=== PATIENT | male | born 1960 | race Caucasian/White ===

== ENCOUNTER 2016-09-10 12:01 | Emergency (ER) | payer MEDICAID ==
[2016-09-10] MEDS ORDERED: LORazepam 2 MG/ML INJ IVP ONE (12:23)
[2016-09-10] MEDS ORDERED: NS 1,000 ML IV ONE ×2 (12:23)
[2016-09-10] MEDS ORDERED: HALOPERIDOL LACT 5 MG/ML INJ IM ONE (12:23)
--- NOTE | 2016-09-10 12:23 | EDPHY ---
H & P Time Seen by Provider: 09/10/16 12:13 HPI/ROS: CHIEF COMPLAINT: Nausea and vomiting HISTORY OF PRESENT ILLNESS: Patient started having symptoms today at 4:00 a.m.. Multiple episodes of nausea and vomiting which are severe. Associated with some mild diffuse abdominal cramping but no hematemesis or coffee-ground emesis. No headache or fever, no recent abdominal trauma. No diarrhea. REVIEW OF SYSTEMS: Eye: no change in vision ENT: no sore throat Cardiac: no chest pain or syncope Pulmonary: no cough or SOB Abdomen: HPI Musculoskeletal: no back pain Skin: no rash Neuro: no headache, chronic decreased strength in lower extremities after previous spinal cord infarct as noted below. Constitutional: no fever : no urinary symptoms A comprehensive 10 point review of systems is otherwise negative aside from elements mentioned in the history of present illness. PAST MEDICAL HISTORY: Discharge summary dated 09/18/2015 personally reviewed. Includes T10 spinal infarct, hyperlipidemia, anxiety, hypertension, coronary disease. Social history: Current tobacco smoker General Appearance: Alert and conversant, cooperative. Eyes: No scleral icterus. ENT, Mouth: Slightly dry mucous membranes. Respiratory: Normal respiratory effort, breath sounds equal, lungs are clear to auscultation. Cardiovascular: Regular rate and rhythm. Gastrointestinal: Abdomen is soft and non tender. Not distended. Neurological: Alert and oriented x3. Normally conversant. Patient has decreased strength in both lower extremities but can move his toes and has sensation to light touch which is baseline for him. Skin: Slightly diaphoretic Musculoskeletal: No peripheral edema and no joint swelling. Psychiatric: Not agitated. Moderately anxious. Emergency Department course/MDM: Labs to include CBC and chemistry, IV lorazepam, IV haloperidol and Benadryl. Patient states that when he gets these he really needs to be sedated primarily to recover from his symptoms. He states that This is better than anti emetics. 1415: Feels better, no abdominal pain nausea or vomiting now. Tolerates oral, rx for Zoifran. Smoking Status: Heavy smoker Constitutional: Initial Vital Signs Temperature (C) 36.5 C 09/10/16 12:09 Heart Rate 68 09/10/16 12:09 Respiratory Rate 22 H 09/10/16 12:09 Blood Pressure 148/86 H 09/10/16 12:09 O2 Sat (%) 99 09/10/16 12:09 O2 Delivery Mode Room Air Allergies/Adverse Reactions: No Known Allergies Allergy (Verified 09/10/16 12:07) Home Medications: Medication Instructions Recorded Gabapentin [Neurontin 400 MG (*)] 400 mg PO TID #90 cap 09/08/15 Metoprolol Tartrate [Lopressor 25 37.5 mg PO BID #60 tab 09/08/15 mg (*)] Ondansetron Odt [Zofran Odt] 4 mg PO Q4PRN #6 tab 09/10/16 Medical Decision Making - Data Points Laboratory Results: Laboratory Results 09/10/16 12:34 09/10/16 12:34 09/10/16 09/10/16 12:34 12:34 WBC 11.14 10^3/uL H 10^3/uL (3.80-9.50) RBC 5.22 10^6/uL 10^6/uL (4.40-6.38) Hgb 16.0 g/dL g/dL (13.7-17.5) Hct 48.7 % % (40.0-51.0) MCV 93.3 fL fL (81.5-99.8) MCH 30.7 pg pg (27.9-34.1) MCHC 32.9 g/dL g/dL (32.4-36.7) RDW 12.1 % % (11.5-15.2) Plt Count 373 10^3/uL 10^3/uL (150-400) MPV 9.8 fL fL (8.7-11.7) Neut % (Auto) 90.9 % H % (39.3-74.2) Lymph % (Auto) 6.5 % L % (15.0-45.0) [place] % (Auto) 1.5 % L % (4.5-13.0) Eos % (Auto) 0.0 % L % (0.6-7.6) Baso % (Auto) 0.3 % % (0.3-1.7) Nucleat RBC Rel Count 0.0 % % (0.0-0.2) Absolute Neuts (auto) 10.13 10^3/uL H 10^3/uL (1.70-6.50) Absolute Lymphs (auto) 0.72 10^3/uL L 10^3/uL (1.00-3.00) Absolute Monos (auto) 0.17 10^3/uL L 10^3/uL (0.30-0.80) Absolute Eos (auto) 0.00 10^3/uL L 10^3/uL (0.03-0.40) Absolute Basos (auto) 0.03 10^3/uL 10^3/uL (0.02-0.10) Absolute Nucleated RBC 0.00 10^3/uL 10^3/uL (0-0.01) Immature Gran % 0.8 % % (0.0-1.1) Immature Gran # 0.09 10^3/uL 10^3/uL (0.00-0.10) Sodium 143 mEq/L mEq/L (134-144) Potassium 4.1 mEq/L mEq/L (3.5-5.2) Chloride 104 mEq/L mEq/L (97-110) Carbon Dioxide 23 mEq/l mEq/l (22-31) Anion Gap 16 mEq/L mEq/L (8-16) BUN 13 mg/dL mg/dL (7-23) Creatinine 0.8 mg/dL mg/dL (0.7-1.3) Estimated GFR > 60 Glucose 159 mg/dL H mg/dL (70-100) Calcium 10.7 mg/dL H mg/dL (8.5-10.4) Phosphorus 3.4 mg/dL mg/dL (2.5-4.5) Medications Given: Discontinued Medications Diphenhydramine HCl (Benadryl Injection) 50 mg IVP EDNOW ONE Stop: 09/10/16 12:25 Last Admin: 09/10/16 12:51 Dose: 50 mg Haloperidol Lactate (Haldol Injection) 2.5 mg IM EDNOW ONE Stop: 09/10/16 12:24 Last Admin: 09/10/16 12:50 Dose: 2.5 mg Sodium Chloride (Ns) 1,000 mls @ 0 mls/hr IV ONCE ONE PRN Reason: Wide Open Stop: 09/10/16 12:24 Last Admin: 09/10/16 12:51 Dose: 1,000 mls Sodium Chloride (Ns) 1,000 mls @ 0 mls/hr IV ONCE ONE PRN Reason: Wide Open Stop: 09/10/16 12:24 Last Admin: 09/10/16 12:40 Dose: 1,000 mls Lorazepam (Ativan Injection) 2 mg IVP EDNOW ONE Stop: 09/10/16 12:24 Last Admin: 09/10/16 12:50 Dose: 2 mg Departure - Departure Disposition: Home, Routine, Self-Care Clinical Impression: Nausea & vomiting Qualifiers: Vomiting type: unspecified Vomiting Intractability: non-intractable Qualified Code(s): R11.2 - Nausea with vomiting, unspecified Condition: Good Instructions: Acute Nausea and Vomiting (ED) Referrals: NONE *PRIMARY CARE P,. [Primary Care Provider] - As per Instructions Griffin Wyatt MD [Medical Doctor] - As per Instructions Prescriptions: Ondansetron Odt [Zofran Odt] 4 mg PO Q4PRN #6 tab
[2016-09-10 12:51] LABS: % IMMATURE GRANULYOCYTES 0.8 % (0.0-1.1); ABSOLUTE IMMATURE GRANULOCYTES 0.09 10^3/uL (0.00-0.10); ADD DIFF? NO; ADD MORPH? NO; ADD SCAN? NO; ATYPICAL LYMPHOCYTE FLAG 0 (0-99); FRAGMENT RBC FLAG 0 (0-99); HEMATOCRIT 48.7 % (40.0-51.0); LEFT SHIFT FLG 10 (0-99); LIPEMIA HEMOLYSIS FLAG 80 (0-99); MEAN CELL HEMOGLOBIN 30.7 pg (27.9-34.1); MEAN CELL HEMOGLOBIN CONCENTR. 32.9 g/dL (32.4-36.7); MEAN CELL VOLUME 93.3 fL (81.5-99.8); MEAN PLATELET VOLUME 9.8 fL (8.7-11.7); PLATELET CLUMPS FLAG 10 (0-99); PLATELET COUNT 373 10^3/uL (150-400); RED BLOOD CELL COUNT 5.22 10^6/uL (4.40-6.38); RED CELL DISTRIBUTION WIDTH 12.1 % (11.5-15.2)
[2016-09-10 13:05] LABS: ANION GAP 16 mEq/L (8-16); CALCIUM 10.7 mg/dL (8.5-10.4); CARBON DIOXIDE 23 mEq/l (22-31); CHLORIDE 104 mEq/L (97-110); CREATININE 0.8 mg/dL (0.7-1.3); GLOMERULAR FILTRATION RATE > 60; GLUCOSE 159 mg/dL (70-100); POTASSIUM 4.1 mEq/L (3.5-5.2); SODIUM 143 mEq/L (134-144)
[2016-09-10 15:03] VITALS: BP 160/120; PULSE 81; RESP 20; TEMP 98.2; O2SAT 96
== END 2016-09-10 15:01 | disposition home or self-care (01) ==
DX: R11.2 Nausea with vomiting, unspecified (principal); I10 Essential (primary) hypertension; F17.200 Nicotine dependence, unspecified, uncomplicated
CPT/HCPCS: 96374; J1200; J2060

== ENCOUNTER 2016-12-06 09:09 | Emergency (ER) | payer MEDICAID ==
[2016-12-06] MEDS ORDERED: NS 1,000 ML IV ONE (09:22)
--- NOTE | 2016-12-06 09:22 | EDPHY ---
H & P Stated Complaint: generalized abd pain states has bleeding ulcers Time Seen by Provider: 12/06/16 09:22 HPI/ROS: CHIEF COMPLAINT: Abdominal pain, vomiting, hematemesis HISTORY OF PRESENT ILLNESS: The patient presents to the ED with abdominal pain , vomiting and hematemesis yesterday. The patient does have a history of cyclic vomiting syndrome. Last seen in the emergency department several months ago. The patient reports he has been using coughing using marijuana on a daily basis. Yesterday he had multiple episodes of vomiting and 1 episode of hematemesis. The patient has had no recurrent hematemesis today. He denies melena. He complains of moderate epigastric pain. The patient denies recent surgery, fever, cough, congestion or other acute complaints. REVIEW OF SYSTEMS: A comprehensive 10 point review of systems is otherwise negative aside from elements mentioned in the history of present illness. Source: Patient Exam Limitations: No limitations - Personal History Current Tetanus/Diphtheria Vaccine: Yes Tetanus Vaccine Date: 2011? 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 - Social History Smoking Status: Heavy smoker - Physical Exam Exam: General Appearance: Thin male, no acute distress Eyes: Pupils equal and round no pallor or injection ENT, Mouth: Mucous membranes moist Respiratory: There are no retractions, lungs are clear to auscultation Cardiovascular: Regular rate and rhythm Gastrointestinal: Minimal epigastric tenderness, no peritoneal sounds, normal bowel sounds Rectal: Brown stool noted Neurological: A&O, normal motor function, normal sensory exam, normal cranial nerves Skin: Warm and dry, no rashes Musculoskeletal: Neck is supple nontender Extremities: symmetrical, full range of motion Constitutional: Initial Vital Signs Temperature (C) 36.8 C 12/06/16 09:16 Heart Rate 105 H 12/06/16 09:16 Respiratory Rate 19 12/06/16 09:16 Blood Pressure 130/83 H 12/06/16 09:16 O2 Sat (%) 97 12/06/16 09:16 O2 Delivery Mode Room Air Allergies/Adverse Reactions: No Known Allergies Allergy (Verified 12/06/16 09:14) Home Medications: Medication Instructions Recorded Gabapentin [Neurontin 400 MG (*)] 400 mg PO TID #90 cap 09/08/15 Metoprolol Tartrate [Lopressor 25 37.5 mg PO BID #60 tab 09/08/15 mg (*)] Ondansetron Odt [Zofran Odt] 4 mg PO Q4PRN PRN #20 tab 12/06/16 Ranitidine HCl 12/06/16 Medical Decision Making - Diagnostics Imaging Results: Imaging Impressions Abdomen CT 12/06/16 10:17 Impression: 1. Mild thickening of the gastric antrum. Consider mild gastritis. 2. No CT evidence of appendicitis, abscess or bowel obstruction. 3. Marked degenerative disk disease at L5-S1 with minimal subluxation and spondylolysis. 4. Stable subcentimeter adrenal adenoma on the right. 5. Moderate constipation. Findings discussed with Michael Mixon at 11:42 hour, 12/06/2016. ED Course/Re-evaluation: I reviewed the patient's past medical records. The patient had an IV established. He received 50 mg of IV Benadryl and 1 mg of IV Ativan The patient did have evidence of leukocytosis likely secondary to vomiting. The patient was taken for CT scan of the abdomen pelvis which demonstrates only mild gastritis without evidence of perforation or obstruction. There is no evidence of an acute surgical condition in the abdomen. The patient is noted to be heme-negative from below. The remainder of the patient's laboratory studies are normal. The patient's vomiting improve while he was in the emergency department. At this point time it is certainly possible he had a small Saima-Goodwin tear yesterday. In the absence of any ongoing hematemesis or melena and stable vital signs and CBC I do feel that he can be discharged home. The patient will be advised to return to the ED for markedly worsening symptoms or other concerns. Differential Diagnosis: Differential diagnosis considered includes upper GI bleed, lower GI bleed, pancreatitis, cyclic vomiting syndrome, dehydration, metabolic abnormality, renal failure - Data Points Laboratory Results: Laboratory Results 12/06/16 09:30 12/06/16 09:30 12/06/16 12/06/16 12/06/16 09:30 09:30 09:30 WBC 20.91 10^3/uL H 10^3/uL (3.80-9.50) RBC 5.53 10^6/uL 10^6/uL (4.40-6.38) Hgb 16.9 g/dL g/dL (13.7-17.5) Hct 48.7 % % (40.0-51.0) MCV 88.1 fL fL (81.5-99.8) MCH 30.6 pg pg (27.9-34.1) MCHC 34.7 g/dL g/dL (32.4-36.7) RDW 13.1 % % (11.5-15.2) Plt Count 360 10^3/uL 10^3/uL (150-400) MPV 10.2 fL fL (8.7-11.7) Neut % (Auto) 78.9 % H % (39.3-74.2) Lymph % (Auto) 10.9 % L % (15.0-45.0) [place] % (Auto) 9.3 % % (4.5-13.0) Eos % (Auto) 0.0 % L % (0.6-7.6) Baso % (Auto) 0.1 % L % (0.3-1.7) Nucleat RBC Rel Count 0.0 % % (0.0-0.2) Absolute Neuts (auto) 16.50 10^3/uL H 10^3/uL (1.70-6.50) Absolute Lymphs (auto) 2.27 10^3/uL 10^3/uL (1.00-3.00) Absolute Monos (auto) 1.94 10^3/uL H 10^3/uL (0.30-0.80) Absolute Eos (auto) 0.01 10^3/uL L 10^3/uL (0.03-0.40) Absolute Basos (auto) 0.02 10^3/uL 10^3/uL (0.02-0.10) Absolute Nucleated RBC 0.00 10^3/uL 10^3/uL (0-0.01) Immature Gran % 0.8 % % (0.0-1.1) Immature Gran # 0.17 10^3/uL H 10^3/uL (0.00-0.10) PT 12.9 SEC SEC (12.0-15.0) INR 0.98 (0.83-1.16) Sodium 137 mEq/L mEq/L (134-144) Potassium 3.9 mEq/L mEq/L (3.5-5.2) Chloride 97 mEq/L mEq/L (97-110) Carbon Dioxide 19 mEq/l L mEq/l (22-31) Anion Gap 21 mEq/L H mEq/L (8-16) BUN 22 mg/dL mg/dL (7-23) Creatinine 0.8 mg/dL mg/dL (0.7-1.3) Estimated GFR > 60 Glucose 113 mg/dL H mg/dL (70-100) Calcium 10.9 mg/dL H mg/dL (8.5-10.4) Phosphorus 2.8 mg/dL mg/dL (2.5-4.5) Total Bilirubin 1.0 mg/dL mg/dL (0.1-1.4) Conjugated Bilirubin 0.4 mg/dL mg/dL (0.0-0.5) Unconjugated Bilirubin 0.6 mg/dL mg/dL (0.0-1.1) AST 17 IU/L IU/L (17-59) ALT 17 IU/L L IU/L (21-72) Alkaline Phosphatase 67 IU/L IU/L (38-126) Total Protein 7.9 g/dL g/dL (6.3-8.2) Albumin 5.0 g/dL g/dL (3.5-5.0) Lipase 69.0 IU/L IU/L (23-300) Stool Occult Bld Scrn 12/06/16 09:25 WBC RBC Hgb Hct MCV MCH MCHC RDW Plt Count MPV Neut % (Auto) Lymph % (Auto) [place] % (Auto) Eos % (Auto) Baso % (Auto) Nucleat RBC Rel Count Absolute Neuts (auto) Absolute Lymphs (auto) Absolute Monos (auto) Absolute Eos (auto) Absolute Basos (auto) Absolute Nucleated RBC Immature Gran % Immature Gran # PT INR Sodium Potassium Chloride Carbon Dioxide Anion Gap BUN Creatinine Estimated GFR Glucose Calcium Phosphorus Total Bilirubin Conjugated Bilirubin Unconjugated Bilirubin AST ALT Alkaline Phosphatase Total Protein Albumin Lipase Stool Occult Bld Scrn NEGATIVE (NEGATIVE) Medications Given: Discontinued Medications Diphenhydramine HCl (Benadryl Injection) 25 mg IVP EDNOW ONE Stop: 12/06/16 09:31 Last Admin: 12/06/16 09:42 Dose: 25 mg Sodium Chloride (Ns) 1,000 mls @ 0 mls/hr IV EDNOW ONE; Wide Open PRN Reason: Protocol Stop: 12/06/16 09:23 Last Admin: 12/06/16 09:42 Dose: 1,000 mls Lorazepam (Ativan Injection) 1 mg IVP EDNOW ONE Stop: 12/06/16 09:31 Last Admin: 12/06/16 09:42 Dose: 1 mg Departure - Departure Disposition: Home, Routine, Self-Care Clinical Impression: Acute abdominal pain, Vomiting Condition: Good Instructions: Acute Abdominal Pain (ED) Additional Instructions: 1. Please use Zofran as needed for nausea. 2. Please follow up with your primary care provider for further care. 3. Please return to the ED immediately for severe pain, recurrent vomiting of blood, black or tarry stools, worsening condition or other concerns. Referrals: Ailyn Maddox DO [Primary Care Provider] - As per Instructions Prescriptions: Ondansetron Odt [Zofran Odt] 4 mg PO Q4PRN PRN #20 tab PRN Reason: For Nausea
[2016-12-06] MEDS ORDERED: LORazepam 2 MG/ML INJ IVP ONE (09:30)
[2016-12-06 09:50] LABS: % IMMATURE GRANULYOCYTES 0.8 % (0.0-1.1); ABSOLUTE IMMATURE GRANULOCYTES 0.17 10^3/uL (0.00-0.10); ADD DIFF? NO; ADD MORPH? NO; ADD SCAN? YES; ATYPICAL LYMPHOCYTE FLAG 0 (0-99); FRAGMENT RBC FLAG 0 (0-99); HEMATOCRIT 48.7 % (40.0-51.0); HEMOGLOBIN 16.9 g/dL (13.7-17.5); LEFT SHIFT FLG 0 (0-99); LIPEMIA HEMOLYSIS FLAG 90 (0-99); MEAN CELL HEMOGLOBIN 30.6 pg (27.9-34.1); MEAN CELL HEMOGLOBIN CONCENTR. 34.7 g/dL (32.4-36.7); MEAN CELL VOLUME 88.1 fL (81.5-99.8); MEAN PLATELET VOLUME 10.2 fL (8.7-11.7); PLATELET CLUMPS FLAG 0 (0-99); PLATELET COUNT 360 10^3/uL (150-400); RED BLOOD CELL COUNT 5.53 10^6/uL (4.40-6.38); RED CELL DISTRIBUTION WIDTH 13.1 % (11.5-15.2)
[2016-12-06 09:56] LABS: INR 0.98 (0.83-1.16); PROTIME(PATIENT) 12.9 SEC (12.0-15.0)
[2016-12-06 10:11] LABS: ALANINE AMINOTRANSFERASE 17 IU/L (21-72); ALKALINE PHOSPHATASE 67 IU/L (38-126); ANION GAP 21 mEq/L (8-16); ASPARTATE AMINOTRANSFERASE 17 IU/L (17-59); BILIRUBIN-CONJUGATED 0.4 mg/dL (0.0-0.5); BILIRUBIN-UNCONJUGATED 0.6 mg/dL (0.0-1.1); CALCIUM 10.9 mg/dL (8.5-10.4); CARBON DIOXIDE 19 mEq/l (22-31); CHLORIDE 97 mEq/L (97-110); CREATININE 0.8 mg/dL (0.7-1.3); GLOMERULAR FILTRATION RATE > 60; GLUCOSE 113 mg/dL (70-100); POTASSIUM 3.9 mEq/L (3.5-5.2); SODIUM 137 mEq/L (134-144); TOTAL PROTEIN 7.9 g/dL (6.3-8.2)
[2016-12-06] MEDS ORDERED: IOPAMIDOL (ISOVUE-300) 100 ML BTL ONE (10:46)
[2016-12-06 10:49] LABS: SCAN NEGATIVE
[2016-12-06 13:11] VITALS: BP 146/113; PULSE 100; RESP 16; TEMP 98.8; O2SAT 93
== END 2016-12-06 13:18 | disposition home or self-care (01) ==
DX: R10.0 Acute abdomen (principal); E86.9 Volume depletion, unspecified; R11.10 Vomiting, unspecified; F17.200 Nicotine dependence, unspecified, uncomplicated
CPT/HCPCS: 96374; J1200; J2060; Q9967

== ENCOUNTER 2017-10-10 23:11 | Inpatient (IN) | payer MEDICAID ==
--- NOTE | 2017-10-11 00:19 | CPEKG ---
Heart Rate: 143 RR Interval: 420 P-R Interval: 124 QRSD Interval: 110 QT Interval: 308 QTC Interval: 475 P [place]: 0 QRS [place]: -78 T Wave [place]: 6 EKG Severity - ABNORMAL ECG - EKG Impression: SINUS TACHYCARDIA EKG Impression: JOSHUA, CONSIDER BIATRIAL ABNORMALITIES EKG Impression: NONSPECIFIC IVCD WITH LAD EKG Impression: INFERIOR INFARCT, AGE INDETERMINATE Electronically Signed By: Joe Cannon 12-Oct-2017 14:52:35
[2017-10-11] MEDS ORDERED: HYDROmorphONE/DILAUDID 2 MG/ML INJ IVP ONE ×2 (00:41→02:24)
[2017-10-11] MEDS ORDERED: HYDROmorphONE/DILAUDID 1 MG/ML INJ ONE ×2 (01:25→02:20)
[2017-10-11 01:26] LABS: PLATELET COUNT 722 10^3/uL (150-400)
[2017-10-11] MEDS ORDERED: IOPAMIDOL (ISOVUE 370) 100 ML BTL IV ONE (02:12)
--- NOTE | 2017-10-11 02:15 | EDPHY ---
H & P Stated Complaint: back pain - Personal History Current Tetanus/Diphtheria Vaccine: Yes Current Tetanus Diphtheria and Acellular Pertussis (TDAP): Yes Tetanus Vaccine Date: 2011? 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 He reports the onset of back pain over the last day. The pain has progressed to involve his chest. He feels short of breath. Overall he states he feels unwell. He states he felt this way when he had his heart attack previously but the symptoms he is having now are worse.. He denies precipitating factors. He denies alleviating factors. He denies other associated signs or symptoms including no fevers or cold symptoms, no recent trauma. Review of systems: A 10 point review of systems was obtained and other than described above was negative (Sarath Coleman) - Physical Exam Exam: General Appearance: Alert, appears unwell, diaphoretic and uncomfortable. Eyes: Pupils equal and round no pallor or injection. ENT, Mouth: Mucous membranes moist. Respiratory: There are no retractions, lungs are clear to auscultation. Cardiovascular: Tachycardic with regular rhythm. Gastrointestinal: Abdomen is soft and non tender, no masses, bowel sounds normal. Neurological: Alert and oriented. Strength and sensation appears intact in the upper extremities. Skin: Warm and dry, no rashes. Musculoskeletal: Neck is supple non tender. Patient is wheelchair bound. Psychiatric: Patient appears anxious and agitated. (Sarath Coleman) Constitutional: Initial Vital Signs Temperature (C) 36.9 C 10/10/17 23:13 Heart Rate 140 H 10/10/17 23:13 Respiratory Rate 24 H 10/10/17 23:13 Blood Pressure 151/108 H 10/10/17 23:13 O2 Sat (%) 94 10/10/17 23:13 O2 Delivery Mode Bi-Pap O2 (L/minute) 3 Allergies/Adverse Reactions: No Known Allergies Allergy (Verified 12/06/16 09:14) Home Medications: Medication Instructions Recorded Ranitidine HCl [Acid Clinical Appeals Auditor] 150 mg PO DAILY PRN 10/12/17 Medical Decision Making - Diagnostics Imaging Results: Chest x-ray one view shows left-sided pleural effusion. See [facility] for CT scan of chest with contrast. (Brooke Gastelum) Procedures: Bedside cardiac Ultrasound- performed and interpreted by me. Indication: Shortness of breath Findings: Hyperdynamic heart, no pericardial effusion, pleural effusions present bilaterally Impression: Bilateral pleural effusions (Brooke Gastelum) ED Course/Re-evaluation: Patient is discussed with my secondary supervising physician Dr. Brooke Gastelum. Patient presents with back pain with associated chest pain and trouble breathing. He is unwell appearing. An IV is established. Baseline lab studies are obtained. Care of patient is turned to Dr. Gastelum given complexity of patient. (Sarath Coleman) 2:23 ED PA DICTATION I evaluated and participated in the management of the patient. I also evaluated the patient independently. My co-signature indicates that I have reviewed this chart and I agree with the findings and plan of care as documented. My personal H&P findings include: 56-year-old male with multiple medical problems presents with shortness of breath which began mid day today slowly and has gotten progressively worse. When he arrives in the emergency department he began to complain of back pain and chest tightness which is diffuse. He is tachycardic on arrival though afebrile. Labs were checked and do reveal no leukocytosis though with a left shift and elevated D-dimer. Because of this, decision made for CT scan of chest. I performed a bedside ultrasound which does show bilateral pleural effusions and hyperdynamic heart without any sign of right heart strain or pericardial effusion. We will check blood cultures start fluids and antibiotics and control his pain. 3:[address] scan has been performed at this time we are currently awaiting results. Second line has been established and lactate returned at 7. His symptoms could be due to sepsis, however pulmonary embolism seems much more likely. Blood cultures have been ordered and the patient has received antibiotics, however there was a delay to diagnosis. We had difficulty establishing an IV for several hours. The patient did not have a fever, thus we were less concerned about sepsis. 3:[address] scan resulted showing extensive pneumo mediastinal air, bilateral pleural effusions, small pneumothoraces bilateral, pulmonary embolism, this was discussed with Dr. Muse of Radiology. On further history, the patient reports that he had been vomiting this morning before his symptoms began. 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 I consulted with the on-call trauma surgeon Dr. Tyree Godinez who is currently evaluating the patient in the emergency department. Broad-spectrum antibiotics have been ordered beyond ceftriaxone. PPI drip has been ordered. RT is in the department trialing BiPAP for the patient because of his increasing respiratory distress. 4:00 a.m. The patient was seen by Dr. Godinez who recommends transfer to the operating room for thoracotomy. The patient will go directly there. (Brooke Gastelum) Critical Care Time: CRITICAL CARE Critical care time spent by me, Dr. Gastelum, exclusively with this patient was 90 minutes, exclusive of PA time and exclusive of procedures. The organ system at risk was cardiac, pulmonary, GI and I gave IV fluids, antibiotics, PPI, emergently consulted the trauma surgeon who took the patient to the operating room to prevent worsening of the patients condition. (Brooke Gastelum) - Data Points Laboratory Results: Laboratory Results 10/11/17 01:15 10/11/17 01:15 Medications Given: Chlorhexidine Gluconate (Peridex) 15 ml PO Q12@08,20 FORTINO Stop: 04/09/18 19:59 Last Admin: 10/15/17 21:33 Dose: 15 ml Enoxaparin Sodium (Lovenox) 40 mg SC DAILY FORTINO Stop: 04/09/18 08:59 Last Admin: 10/15/17 10:12 Dose: 40 mg Potassium Chloride 20 meq/ (Dextrose/Lactated Ringer's) 1,000 mls @ 100 mls/hr IV CONT FORTINO Stop: 04/10/18 07:59 Last Admin: 10/15/17 21:51 Dose: 1,000 mls Fluconazole/Sodium Chloride (Diflucan 2mg/Ml (Premix)) 200 mls @ 100 mls/hr IV DAILY FORTINO Stop: 11/11/17 09:29 Last Admin: 10/15/17 10:45 Dose: 200 mls Ampicillin Sodium/Sulbactam (Sodium 3 gm/ Sodium Chloride) 100 mls @ 200 mls/ hr IV Q6HRS FORTINO PRN Reason: Protocol Stop: 11/12/17 17:59 Last Admin: 10/15/17 18:07 Dose: 100 mls Potassium Chloride (Potassium Cl 20 Meq (Premix)) 50 mls @ 25 mls/hr IV ONCE ONE Stop: 10/15/17 23:05 Last Admin: 10/15/17 21:33 Dose: 50 mls Levalbuterol (Xopenex 0.63mg Neb) 0.63 mg IH Q8HRS PRN PRN Reason: Short of Breath/Dyspnea Stop: 04/10/18 11:13 Last Admin: 10/12/17 16:32 Dose: 0.63 mg Morphine Sulfate (Morphine) 1 - 4 mg IVP Q1HR PRN PRN Reason: Pain, Severe Unable to Take PO Stop: 10/21/17 04:18 Last Admin: 10/12/17 22:48 Dose: 4 mg Pantoprazole Sodium (Protonix) 40 mg IVP BID [facility] Stop: 04/10/18 08:59 Last Admin: 10/15/17 21:33 Dose: 40 mg Promethazine HCl (Phenergan) 12.5 - 25 mg IVP Q4HRS PRN PRN Reason: Nausea/Vomiting, Can't Take PO Stop: 04/09/18 08:06 Last Admin: 10/11/17 21:14 Dose: 12.5 mg Discontinued Medications Albuterol (Proventil Inhaler) 4 puffs IH Q4VENT FORTINO Stop: 04/09/18 11:59 Last Admin: 10/11/17 16:23 Dose: Not Given Albuterol/Ipratropium (Duoneb) 3 ml IH EDNOW ONE Stop: 10/11/17 02:53 Last Admin: 10/11/17 02:55 Dose: 3 ml Bupivacaine HCl (Sensorcaine 0.5% Vial) Confirm Administered Dose 30 ml .ROUTE .STK-MED ONE Stop: 10/11/17 05:33 Last Admin: 10/11/17 07:03 Dose: 10 ml Bupivacaine HCl (Sensorcaine 0.25% Sdv) Confirm Administered Dose 120 ml .ROUTE .STK-MED ONE Stop: 10/11/17 06:21 Last Admin: 10/11/17 07:09 Dose: 120 ml Diatrizoate Meglum/Diatrizoate Sod (Gastroview 66-10 Soln) 30 ml PO EDNOW ONE Stop: 10/11/17 03:39 Last Admin: 10/11/17 03:43 Dose: 30 ml Hydromorphone HCl (Dilaudid) 1 mg IVP EDNOW ONE Stop: 10/11/17 00:42 Last Admin: 10/11/17 01:29 Dose: 1 mg Hydromorphone HCl (Dilaudid) 1 mg IVP EDNOW ONE Stop: 10/11/17 02:25 Last Admin: 10/11/17 02:25 Dose: 1 mg Ceftriaxone Sodium/Dextrose (Rocephin 1 Gm (Premix)) 50 mls @ 100 mls/hr IV EDNOW ONE PRN Reason: Protocol Stop: 10/11/17 02:51 Last Admin: 10/11/17 02:48 Dose: 50 mls Sodium Chloride (Ns) 2,000 mls @ 4,000 mls/hr 30 ml/kg infuse over 30 min ( 2000 ml) IV EDNOW ONE PRN Reason: Protocol Stop: 10/11/17 02:51 Last Admin: 10/11/17 02:25 Dose: 1,000 mls Piperacillin/Tazobactam/Dextrose (Zosyn 3.375 Gm (Premix)) 50 mls @ 100 mls/hr IV EDNOW ONE PRN Reason: Protocol Stop: 10/11/17 03:50 Last Admin: 10/11/17 03:25 Dose: 50 mls Sodium Chloride (Ns) 1,000 mls @ 0 mls/hr IV ONCE ONE PRN Reason: Wide Open Stop: 10/11/17 04:23 Last Admin: 10/11/17 04:23 Dose: 1,000 mls Sodium Chloride (Ns) 1,000 mls @ 0 mls/hr IV ONCE ONE PRN Reason: Wide Open Stop: 10/11/17 04:22 Last Admin: 10/11/17 08:48 Dose: Not Given Lactated Ringer's (Lr) 1,000 mls @ 125 mls/hr IV CONT FORTINO Stop: 10/12/17 08:29 Last Admin: 10/12/17 05:02 Dose: 1,000 mls Fentanyl/Sodium Chloride (Fentanyl 10 Mcg/Ml (Premix)) 100 mls @ 0 mls/hr IV CONT FORTINO; Per Protocol PRN Reason: Protocol Stop: 10/21/17 08:36 Last Admin: 10/11/17 10:09 Dose: 100 mls Propofol (Diprivan 10 Mg/Ml (Premix)) 100 mls @ 0 mls/hr IV CONT FORTINO; Per Protocol PRN Reason: Protocol Stop: 04/09/18 08:36 Last Admin: 10/11/17 08:49 Dose: 100 mls Famotidine/Sodium Chloride (Pepcid 20 Mg (Premix)) 50 mls @ 200 mls/hr IV Q12HRS FORTINO Stop: 04/09/18 08:59 Last Admin: 10/11/17 20:05 Dose: 50 mls Piperacillin/Tazobactam/Dextrose (Zosyn 3.375 Gm (Premix)) 50 mls @ 100 mls/hr IV Q6H FORTINO PRN Reason: Protocol Stop: 11/10/17 09:59 Last Admin: 10/13/17 10:53 Dose: 50 mls Albumin Human (Alburx 5) 500 mls @ 0 mls/hr IV ONCE ONE PRN Reason: As Directed Stop: 10/11/17 10:00 Last Admin: 10/11/17 10:09 Dose: 500 mls Phenylephrine HCl 50 mg/ (Dextrose) 255 mls @ 0 mls/hr IV CONT FORTINO; Titrate PRN Reason: Protocol Stop: 04/09/18 10:59 Last Admin: 10/11/17 11:10 Dose: 255 mls Albumin Human (Alburx 5) 500 mls @ 0 mls/hr IV ONCE ONE PRN Reason: As Directed Stop: 10/11/17 12:40 Last Admin: 10/11/17 13:02 Dose: 500 mls Albumin Human (Alburx 5) 500 mls @ 0 mls/hr IV ONCE ONE PRN Reason: As Directed Stop: 10/11/17 13:31 Last Admin: 10/11/17 13:19 Dose: 500 mls Norepinephrine 4 mg/ Dextrose 504 mls @ 0 mls/hr IV CONT FORTINO; Per Protocol PRN Reason: Protocol Stop: 04/09/18 15:59 Last Admin: 10/11/17 17:12 Dose: 504 mls Potassium Chloride (Potassium Cl 20 Meq (Premix)) 50 mls @ 25 mls/hr IV Q2H [facility] Stop: 10/12/17 13:44 Last Admin: 10/12/17 13:17 Dose: 50 mls Potassium Chloride (Potassium Cl 10 Meq (Premix)) 50 mls @ 50 mls/hr IV Q1H [facility] Stop: 10/12/17 21:44 Last Admin: 10/12/17 19:42 Dose: 50 mls Potassium Chloride (Potassium Cl 10 Meq (Premix)) 50 mls @ 50 mls/hr IV Q1H [facility] Stop: 10/13/17 06:59 Last Admin: 10/13/17 04:49 Dose: 50 mls Potassium Chloride (Potassium Cl 20 Meq (Premix)) 50 mls @ 25 mls/hr IV ONCE ONE Stop: 10/13/17 21:38 Last Admin: 10/13/17 20:26 Dose: 50 mls Potassium Chloride (Potassium Cl 10 Meq (Premix)) 50 mls @ 50 mls/hr IV Q1H [facility] Stop: 10/14/17 23:29 Last Admin: 10/14/17 23:32 Dose: 50 mls Potassium Chloride (Potassium Cl 10 Meq (Premix)) 50 mls @ 50 mls/hr IV Q1H [facility] Stop: 10/15/17 15:59 Last Admin: 10/15/17 16:39 Dose: 50 mls Lorazepam (Ativan Injection) 1 - 2 mg IVP Q2HRS PRN PRN Reason: Anxiety, Unable to Take PO Stop: 04/09/18 09:59 Last Admin: 10/14/17 00:41 Dose: 2 mg Morphine Sulfate (Morphine) 5 mg IVP EDNOW ONE Stop: 10/11/17 04:08 Last Admin: 10/11/17 04:08 Dose: 5 mg Pantoprazole Sodium (Protonix) 80 mg IVP EDNOW ONE Stop: 10/11/17 03:23 Last Admin: 10/11/17 03:40 Dose: 80 mg Sodium Bicarbonate (Sodium Bicarbonate) 50 meq IVP ONCE ONE Stop: 10/11/17 11:46 Last Admin: 10/11/17 11:56 Dose: 50 meq Sodium Bicarbonate (Sodium Bicarbonate) 50 meq IVP ONCE ONE Stop: 10/11/17 11:33 Last Admin: 10/11/17 11:56 Dose: 50 meq Point of Care Test Results: Chemistry 10/11/17 01:25 POC Troponin I 0.00 ng/mL ng/mL (0.00-0.08) Departure - Departure Disposition: To OP Cath/Surgery Clinical Impression: Boerhaave syndrome, Lactic acid acidosis, Respiratory distress Condition: Critical
[2017-10-11] MEDS ORDERED: NS 2,000 ML IV ONE (02:22)
[2017-10-11] MEDS ORDERED: IPRATROPIUM/ALBUTEROL 3 ML DEYVIAL IH ONE (02:52)
[2017-10-11] MEDS ORDERED: ALTEPLASE 100 MG/100 ML VIAL IV ONE (03:01)
[2017-10-11] MEDS ORDERED: PIPERACILLIN/TAZO 3.375 GM/DEX 50 ML IV ONE (03:21)
[2017-10-11] MEDS ORDERED: PANTOPRAZOLE SODIUM 40 MG VIAL IVP ONE (03:22)
[2017-10-11] MEDS ORDERED: GASTROVIEW 30 ML UNIT PO ONE (03:38)
--- NOTE | 2017-10-11 04:04 | PDCONSULT ---
[facility] Operator Note: #[id number] Surgery/Acute Care Consult Dictated S MD Herbert, FACS
[2017-10-11] MEDS ORDERED: NS 1,000 ML IV ONE ×2 (04:21→04:22)
[2017-10-11] MEDS ORDERED: MIDAZOLAM 2 MG/2 ML VIAL ONE (04:39)
[2017-10-11] MEDS ORDERED: PROPOFOL 200 MG/20 ML VIAL ONE (04:43)
[2017-10-11] MEDS ORDERED: fentaNYL 100 MCG/2 ML INJ ONE (04:43)
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
[2017-10-11] MEDS ORDERED: ROCURONIUM 50 MG/5 ML VIAL ONE ×2 (05:24→07:28)
[2017-10-11] MEDS ORDERED: ONDANSETRON 4 MG/2 ML VIAL ONE (05:24)
[2017-10-11] MEDS ORDERED: PHENYLEPHRINE HCL 100 MCG/ML SYR ONE (05:24)
[2017-10-11] MEDS ORDERED: LIDOCAINE 2% JELLY 5 ML TUBE ONE ×2 (05:24→06:11)
[2017-10-11] MEDS ORDERED: BUPIVACAINE 0.5% 30 ML SDV ONE (05:32)
--- NOTE | 2017-10-11 05:55 | PDANEPAE ---
ANE Past Medical History - Cardiovascular History Hx Hypertension: Yes Hx Coronary Artery / Peripheral Vascular Disease: Yes - Pulmonary History Hx COPD: Yes Hx Oxygen in Use at Home: No Hx Sleep Apnea: No - Endocrine History Hx Diabetes: No - Chronic Pain History Chronic Pain: No ANE Review of Systems Review of Systems: - Systems Neurological: Reports: other (paraplegic s/p spinal cord infarct) ANE Patient History - Allergies Allergies/Adverse Reactions: No Known Allergies Allergy (Verified 12/06/16 09:14) - Home Medications Home Medications: Ranitidine HCl 12/06/16 [Last Taken Unknown] - NPO status NPO Since - Liquids (Date): 10/09/17 NPO Since - Liquids (Time): 04:25 NPO Since - Solids (Date): 10/09/17 NPO Since - Solids (Time): 04:25 - Smoking Hx Smoking Status: Heavy smoker ANE Labs/Vital Signs - Labs Result Diagrams: 10/11/17 01:15 10/11/17 01:15 - Vital Signs Blood Pressure: 132/102 Heart Rate: 145 Respiratory Rate: 32 O2 Sat (%): 94 Height: 167.64 cm Weight: 68.039 kg ANE Physical Exam - Airway Mallampati Score: Class 1 Mouth exam: poor dentition - Pulmonary Pulmonary: respiratory distress - ASA Status ASA Status: IV, E ANE Anesthesia Plan Anesthesia Plan: general endotracheal anesthesia Lines/Monitors: additional IV Specialized Airway: double lumen tube Urgent/Emergent Case: Masoud joyce completed preop but documented later for safe timely pt care
[2017-10-11] MEDS ORDERED: BUPIVACAINE 0.25% 30 ML SDV ONE (06:20)
[2017-10-11] MEDS ORDERED: NALOXONE HCL 0.4 MG/ML INJ IVP PRN (08:03)
[2017-10-11] MEDS ORDERED: PHENYLEPHRINE HCL 100 MCG/ML SYR IVP PRN (08:03)
[2017-10-11] MEDS ORDERED: DIAZEPAM 5 MG/ML 1 ML SYR IVP PRN (08:03)
[2017-10-11] MEDS ORDERED: ONDANSETRON 4 MG/2 ML VIAL IVP PRN (08:03)
[2017-10-11] MEDS ORDERED: LR 500 ML IV PRN (08:03)
[2017-10-11] MEDS ORDERED: fentaNYL 100 MCG/2 ML INJ IVP PRN (08:03)
[2017-10-11] MEDS ORDERED: PROPOFOL/EMULSION 1,000 MG/100 ML BOTTLE IV ONE (08:04)
--- NOTE | 2017-10-11 08:05 | POSTOPPROG ---
Post Op Note Date of Operation: 10/11/17 Surgeon: Michoacano Godinez (, FACS) Anesthesiologist: Jerry Mims MD Anesthesia: GET(General Endotracheal) Pre-op Diagnosis: esophogeal perforation with mediastinitis Post-op Diagnosis: same Procedure: right thoracotomy, repair esophogeal perforation, intercostal flap, left CT Findings: distal third-anterior wall esophogeal perforation with mediastinitis Inf/Abcess present in the surg proc area at time of surgery?: Yes Depth: Organ Space EBL: Minimal (25 ml) Total fluids administered: 2000 ml in OR + 2000ml in ED pre-op Drains: Other (bilateral [address]) Specimen(s): portions of necrotic mediastinal soft tissue.
--- NOTE | 2017-10-11 08:06 | POSTANESTH ---
Post Anesthetic Evaluation Cardiovascular Status: Similar to Pre-Op Cond Respiratory Status: Normal, Stable, Other, See Comment Level of Consciousness/Mental Status: Unconscious Pain Control: Adequate, Prn Tx Ordered Complications Possibly Related to Anesthesia: None Noted (Patient is intubated/ ventilated. Left and right chest tubes in place.)
[2017-10-11] MEDS ORDERED: PROMETHAZINE HCL 25 MG/ML INJ IVP PRN (08:07)
--- NOTE | 2017-10-11 08:31 | PDMN ---
Medical Necessity Medical necessity: C/M review: est. > 2 MN LOS for eval and TX of acute esophageal perforation with exensive mediastinitis (Boerhaave syndrome) and bilateral pleural effusions, requiring 10/11/2017 emergent surgery right thoracotomy, repair esophageal perforation, intercostal flap, left chest tube, right chest tube - findings; distal anterior third - anterior wall esophageal perforation with mediastinitis - Inpatient surgery per Medicare guidelines and ongoing postop mechanical ventilation, cardiac monitoring, pulse oximetry, IV fluids, bilateral chest tube management in ICU comorbid prior spinal cord infarct with paraplegia, patient is wheelchair bound, chronic tobacco use, history of traumatic diaphragmatic injury with herniation of the stomach into the left chest, history of GERD, history of vomiting dating back to 2011, history of testicular cancer, 2006 per General Surgery Consult note, Surgery Post-operative note.
[2017-10-11] MEDS ORDERED: fentaNYL/NACL 100 ML IV SCH (08:37)
[2017-10-11] MEDS ORDERED: PROPOFOL/EMULSION 100 ML IV SCH (08:37)
[2017-10-11] MEDS: LR 1,000 ML IV SCH ×3 (08:49→20:04)
[2017-10-11] MEDS ORDERED: ALTEPLASE 2 MG VIAL IVP PRN (09:19)
[2017-10-11] MEDS: ENOXAPARIN 40 MG/0.4 ML SYR SC SCH (09:24)
[2017-10-11] MEDS: FAMOTIDINE 20 MG/NACL 50 ML IV SCH ×2 (09:25→20:05)
[2017-10-11] MEDS: PIPERACILLIN/TAZO 3.375 GM/DEX 50 ML IV SCH ×3 (09:25→21:14)
[2017-10-11] MEDS ORDERED: ALBUMIN 5% 500 ML IV ONE ×3 (09:59→13:30)
[2017-10-11] MEDS: LORazepam 2 MG/ML INJ IVP PRN (10:09)
[2017-10-11 10:14] LABS: PLATELET COUNT 548 10^3/uL (150-400)
[2017-10-11] MEDS ORDERED: SODIUM BICARBONATE 50 MEQ/50 ML SYR ONE (10:42)
[2017-10-11] MEDS ORDERED: DOPamine/DEXTROSE/250 ML BAG IV ONE (10:44)
[2017-10-11] MEDS ORDERED: PHENYLEPHRINE HCL 50 MG in D5W 250 ML IV SCH (11:00)
[2017-10-11] MEDS ORDERED: SODIUM BICARBONATE 50 MEQ/50 ML SYR IVP ONE ×2 (11:32→11:45)
[2017-10-11] MEDS ORDERED: NOREPINEPHRINE/NS 500 ML IV SCH (13:00)
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
[2017-10-11] MEDS: ALBUTEROL 60 PUFFS/8 GM MDI IH SCH ×2 (13:36→16:23)
[2017-10-11] MEDS ORDERED: NOREPINEPHRINE BITARTRATE 4 MG in NS 500 ML IV SCH (14:00)
--- NOTE | 2017-10-11 14:01 | GOP ---
[f rep st] OPERATIVE REPORT DATE OF OPERATION: 10/11/2017 SURGEON: Michoacano Godinez MD, FACS [employer]ERAMIC MAKER DEMONSTRATOR: Raman Araiza CST. ANESTHESIA: General endotracheal. ANESTHESIOLOGIST: Jerry Mims MD. PREOPERATIVE DIAGNOSIS: Esophageal perforation with mediastinitis. POSTOPERATIVE DIAGNOSIS: Esophageal perforation with mediastinitis. PROCEDURE PERFORMED: 1. Right thoracotomy with repair of esophageal perforation and debridement of mediastinum. 2. Creation of intercostal muscular pedicle flap for vascularized tissue coverage. 3. Left closed tube thoracostomy. FINDINGS: ESTIMATED BLOOD LOSS: 25 mL. INDICATIONS: Patient is a 56-year-old male who presented to the emergency room with chest pain and dyspnea after emesis earlier in the day. He was found on imaging to have extensive mediastinal air and fluid and bilateral pleural effusions. Contrast administered in the emergency department in an upright position followed by chest x-ray showed extravasation in the distal esophagus draining to the right chest at least in 1 projection. Informed consent was obtained for attempted repair of the esophageal perforation via thoracotomy, and he received Zosyn 3.375 g intravenously prior to surgery. DESCRIPTION OF PROCEDURE: After informed consent was obtained, the patient was brought to the operating room and placed under general anesthesia via double- lumen endotracheal tube by Dr. Mims. The position of the tracheal lumen was confirmed by video bronchoscopy suggesting the position of the tube for optimal ventilation of either or both lungs. The patient was then positioned in a left lateral decubitus position, padding all pressure points and using an axillary roll. The left chest and upper abdomen were clipped, prepped, and draped in the usual fashion. Before proceeding, a time-out and identification of the patient was performed. A Monroe catheter had been placed and SCD stockings were in place. The right chest was entered through a standard posterior lateral thoracotomy skin incision. Dissection was carried down to the latissimus muscle, which was incised partially until the posterior edge of the serratus muscle was identified and mobilized anteriorly. This allowed for a serratus-sparing approach to lessen the patient's postoperative pain. The intercostal muscle was divided above the 8th rib and the chest cavity entered. Approximately 1200 cc of dark grayish brown liquid with purulent exudate was aspirated. The incision was extended along the length of the superior aspect of the 8th rib anteriorly to posteriorly and a Finochietto retractor deployed. One lung anesthesia was then attempted for the 1st time and for several minutes allowed dissection of the posterior mediastinal pleura where dark black necrotic parietal pleura was encountered extending into the inferior pulmonary ligament. This tissue was debrided, and the posterior mediastinum entered. Care was taken to avoid injury to the phrenic nerve. The vagus nerves were identified along the right posterior and left anterior aspects of the esophagus. The distal esophagus appeared edematous, but without obvious injury. Dissection was carried out inferiorly to the diaphragm and from right to left, opening up the mediastinum of the left pleural space with blunt dissection and aspirating another 600-700 mL of brownish king fluid. At this point, we had to stop surgery for a period of time and allow for ventilation as the patient was intermittently intolerant of 1 lung anesthesia. Returning to the operative task at hand, the esophagus was encircled with a [place] drain, carefully inspected. The GE junction was identified and no injury observed. Dr. Mims then passed the nasogastric tube, which was guided by palpation to the distal esophagus. The mediastinum was filled with saline, and air was introduced through the nasogastric tube, indicating the injury to be higher than the level of the inferior pulmonary ligament. Nasogastric tube was backed out slightly and further dissection performed in the posterior mediastinum, incising the posterior pleura cephalad to the hilum and anteriorly well above the inferior pulmonary vein. Careful blunt dissection was used to mobilize the inferior pulmonary vein with significant scar tissue that appeared somewhat chronic in that aspect of the posterior inferior mediastinum. The injury was subsequently identified with careful use of sharp dissection and the edges noted to be viable and somewhat fibrotic, appropriate for attempted primary suturing. This had more of the appearance of a chronic ulcer of the esophagus that had finally perforated into the mediastinum A single layer of interrupted 3-0 Vicryl sutures was used to close the defect longitudinally and there appeared to be adequate blood supply to the esophagus. Given the degree of bacterial contamination within the area, though, this appeared to be at risk for subsequent leakage, and so I fashioned an intercostal muscular flap to bring in vascularized tissue to the region. Starting in the anterior aspect of the 7th intercostal space, the intercostal muscle was freed from the inferior aspect of the 7th rib, starting medially and anteriorly and extending posteriorly. At the level of the paraspinous muscles, the muscle was freed up along with the fascia of the spinae erector muscle, and this appeared to provide adequate length for a circumferential wrap of the esophagus. The muscular flap was approximately 1.5 cm in width and was gently passed posterior to the esophagus at the level of the repair. Two titanium clips were placed on the proximal and distal Vicryl suture tags for potential future identification. The muscular flap was passed posterior to the esophagus and then anteriorly over the defect providing a layer of vascularized muscle tissue over the repair. This was sutured to the posterior pleura to prevent it from retracting or rotating with interrupted 3-0 Vicryl sutures somewhat loosely. Chest cavity was irrigated with several liters of normal saline solution until the effluent was clear. There was significant anthracotic pigmentation of the lung surface and some granulomatous-feeling subpleural nodules, but nothing particularly suspicious. A 36-Swedish right angle chest tube was passed through a separate incision in the 8th intercostal space and positioned posterolaterally. This was secured to the skin with 0 silk suture. The 8th rib was drilled in 4 different positions approximately 3 cm apart to allow for a primary suture closure of the intercostal space. The rib approximators were used to pull the 7th and 8th ribs together as the 0 Vicryl Ethibond sutures were tied in place. The serratus muscle was allowed to return to its anatomic position. An On-Q catheter was brought into the field close to the chest tube for an entry site and placed into the intercostal closure for later Marcaine infusion. This was primed with 20 cc of 0.25% Marcaine. The latissimus muscle was approximated with interrupted 0 Vicryl sutures. Subcutaneous tissues were approximated with continuous running 2-0 Vicryl suture. Skin was closed with kenny. The On-Q catheter was secured to the skin with Dermabond. Sterile dressings were applied. The patient was then placed in a supine position, reintubated with a single-lumen endotracheal tube. The left chest was then prepped and draped in the usual sterile fashion, and a left closed-tube thoracostomy performed as follows. An incision was made in the left 6th intercostal space along the anterior axillary line, and blunt dissection used to enter the chest cavity. A 36- Swedish straight chest tube was introduced and advanced without resistance. The chest tube was secured to the skin with 0 silk suture and both chest tubes attached to Pleur-Evacs. Nasogastric tube position had been confirmed prior to closure and this was secured to the patient's nose with tape. He was returned intubated to the intensive care unit in guarded condition. FLUIDS ADMINISTERED: 2 L of normal saline in the emergency room and in transport and 2 L of lactated Ringer's during the procedure. COMPLICATIONS: None. /[id number]/MODL MTDD
--- NOTE | 2017-10-11 14:37 | ASMTCMCOM ---
CM Note CM Note Notes: Patient admitted very early this morning with back and chest pain and SOB. He was found to have bilateral pleural effusions, bilateral pneumothoraces, and bilateral PE. 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 He was taken directly to the OR for a thoracotomy, esophageal perf repair, intercostal flap, and left CT thoracostomy. He is intubated and sedated. We haven't been able to locate any contact information for friends/family. Per night RN, when patient was asked if there was anyone we could contact, he said "my doctor." I looked up past [facility] visits and couldn't find any contact info. When patient is able, we'll talk to him about his support system. Case Management will follow. Date Signed: 10/11/2017 02:36 PM Electronically Signed By:Jaz Purdy RN
[2017-10-11] MEDS ORDERED: NOREPINEPHRINE BITARTRATE 4 MG in D5W 500 ML IV SCH (16:00)
--- NOTE | 2017-10-11 19:42 | POSTOPPROG ---
Post Op Note Date of Operation: 10/11/17 Surgeon: Misha Maldonado Induction Furnace Operator: none Anesthesia: IV Sedation Pre-op Diagnosis: hypotension -need for central access Post-op Diagnosis: same Procedure: L SCV TLC placement Findings: Good drawn flush from all 3 ports. Chest x-ray shows line in good position Inf/Abcess present in the surg proc area at time of surgery?: No Depth: Organ Space EBL: Minimal Complications: None Specimen(s): None
--- NOTE | 2017-10-11 19:45 | SUROPNOTE ---
[facility] Operative Report - Surgery Date of procedure: 10/11/2017 Indications for procedure: This is a 56-year-old gentleman who just underwent recent thoracotomy in bilateral chest tube placement for perforation of the esophagus who is in the intensive care unit and is requiring vasopressor medication and sedation. Preop diagnosis: Hypotension, poor IV access Postop diagnosis : Same Surgeon: Joel Anesthesia used local anesthetic patient is already intubated Details of the procedure: After identification the patient by 2 independent variables, time-out was performed according institutional standards. His left chest and neck were prepped with chlorhexidine and draped sterilely. Local anesthetic was infused in skin and subcutaneous tissues and an 18 gauge needle was used to cannulate the subclavian vein. Seldinger technique was used to maintain access while the tract was dilated and catheter was placed over the wire. The catheter was secured at 20 cm. Biopatch was placed. Dressing was applied. All 3 ports had an easy flush and draw. Postoperative chest x-ray demonstrated line in good position without sign of pneumothorax.
[2017-10-11] MEDS: CHLORHEXIDINE GLUCONATE 15 ML UDL PO SCH (20:09)
[2017-10-12] MEDS: PIPERACILLIN/TAZO 3.375 GM/DEX 50 ML IV SCH ×4 (03:56→21:04)
[2017-10-12 04:37] LABS: PLATELET COUNT 375 10^3/uL (150-400)
[2017-10-12] MEDS: LR 1,000 ML IV SCH (05:02)
--- NOTE | 2017-10-12 07:28 | SOAPPROG ---
SOAP Progress Note Assessment/Plan: Assessment:s/p repair distal esophogeal perforation with debridement of mediastinitis probable perforated distal esophogeal ulcer. Hemodynamically improved post resuscitation/drainage Patient's lack of impulsive control and understanding of the gravity of his situation make him unsafe for transfer to [facility]-surg Plan:leave NGT out/NPO 5 days post op then obtain gastrograffin swallow prior to trial of feeding continue Abx, check cultures, IV PPI ? DC Monroe-patient self caths at home VTE prophylaxis replace K+ 10/12/17 07:24 Subjective: patient pulled out his NGT 14 hours post repair of distal esophogeal perforation. Appears comfortable, cooperative Objective: Vital Signs Temp Pulse Resp BP Pulse Ox 36.7 C 110 H 21 H 129/80 H 94 10/12/17 04:00 10/12/17 06:00 10/12/17 06:00 10/12/17 06:00 10/12/17 06:00 Microbiology 10/11/17 05:55 Gram Stain - Final Chest - Other Laboratory Results 10/12/17 04:00 10/12/17 04:00 10/11/17 10/12/17 10/13/17 05:59 05:59 05:59 Intake Total 1200 4922 Output Total 3170 Balance 1200 1752 - Time Spent With Patient Time Spent With Patient: 20 - Pending Discharge Pending Discharge Within 24 Hours: No Pending Discharge Within 48 Hours: No Physical Exam - Physical Exam General Appearance: mild distress Respiratory: lungs clear, decreased breath sounds (at bases) Cardiac/Chest: regular rate, rhythm, tachycardia Abdomen: non-tender, soft Male Genitalia: other (Monroe) Rectal: deferred Skin: warm/dry Neuro/Psych: alert ICD10 Worksheet Patient Problems: Problems Problem Status Onset Boerhaave syndrome Acute Lactic acid acidosis Acute Respiratory distress Acute Acute infarction of spinal cord Acute Gastrointestinal hemorrhage Acute
[2017-10-12] MEDS: POTASSIUM Cl (KCl) 20 MEQ in D5W LR 1,000 ML IV SCH ×2 (07:55→21:04)
[2017-10-12] MEDS: CHLORHEXIDINE GLUCONATE 15 ML UDL PO SCH ×2 (07:56→20:00)
[2017-10-12] MEDS: PANTOPRAZOLE SODIUM 40 MG VIAL IVP SCH ×2 (08:46→20:00)
[2017-10-12] MEDS: ENOXAPARIN 40 MG/0.4 ML SYR SC SCH (08:48)
[2017-10-12] MEDS ORDERED: PROTOCOL POTASSIUM 1 DOSE MISC PRN (09:04)
[2017-10-12] MEDS: FLUCONAZOLE/NaCl 200 ML IV SCH (10:00)
--- NOTE | 2017-10-12 10:08 | PDINTPN ---
Facilities Operator Progress Note Assessment/Plan: Assessment: Status post esophageal rupture and repair by Dr. Godinez. Mediastinitis and bilateral pleural space contamination present at surgery. Alia growing from chest cultures. Will add Diflucan. On Zosyn. Clinically doing very well. Sepsis: Resolving, secondary to 1. Off Levophed. Bilateral chest tubes, pleural effusions. Draining well. Acute respiratory failure: Resolved. On 2 L. Ongoing tobacco abuse. Possible COPD? Metabolic: Hypokalemia. On replacement protocol. Prophylaxis: On pantoprazole and Lovenox. History of multiple medical problems including systemic hypertension, coronary artery disease, spinal cord infarction with lower extremity weakness, reflux and acid peptic disease, decubitus a day, etc. Stable. Plan: Continue care in the intensive care unit. Continue Zosyn. Add Diflucan. Add a nicotine patch, as needed Xopenex. Continue pantoprazole and Lovenox. Continue NPO status. Continue IV fluids per follow laboratory, chest x-ray, clinical status. 30 min of critical care time spent directly with the patient. Discussed with nursing, respiratory, and the ICU multi disciplinary team. Subjective: Doing well. Denies shortness of breath or significant pain. Sitting up in bed. Thirsty. Objective: Vital Signs Temp Pulse Resp BP Pulse Ox 37.6 C 123 H 26 H 97/65 L 93 10/12/17 08:00 10/12/17 09:27 10/12/17 09:27 10/12/17 09:27 10/12/17 09:27 Microbiology 10/11/17 05:55 Gram Stain - Final Chest - Other Laboratory Results 10/12/17 04:00 10/12/17 04:00 10/11/17 10/12/17 10/13/17 05:59 05:59 05:59 Intake Total 1200 4922 4.7 Output Total 3170 165 Balance 1200 1752 -160.3 Laboratory Tests 10/12/17 10/12/17 04:00 04:00 Calcium 7.7 L Phosphorus 2.7 Magnesium 1.7 CXR: Bilat CTs in good position, retrocardiac infiltrate/atelectasis. NG out. Physical Exam - Physical Exam General Appearance: alert, no apparent distress, thin EENT: PERRL/EOMI, other (Nasal cannula at 2 L) Neck: normal inspection, other (Triple-lumen in place on the left) Respiratory: lungs clear (Anteriorly), decreased breath sounds (At bases), other (2 chest tubes in, 1 on either side. No air leak. Relatively large volume out, 600 on the right, 1 L on the left.) Cardiac/Chest: tachycardia (Sinus), No gallop Abdomen: other (Postoperative changes) Skin: warm/dry, pallor Extremities: No pedal edema Neuro/Psych: No no motor/sensory deficits (Moves all extremities, somewhat weak lower extremities.), No cognition abnormalities ICD10 Worksheet Patient Problems: Problems Problem Status Onset Gastrointestinal hemorrhage Acute Acute infarction of spinal cord Acute Boerhaave syndrome Acute Lactic acid acidosis Acute Respiratory distress Acute
[2017-10-12] MEDS ORDERED: LEVALBUTEROL 0.63 MG/3 ML DEYVIAL IH PRN (11:14)
[2017-10-12] MEDS: POTASSIUM Cl (KCl) 50 ML IV SCH ×4 (12:08→19:42)
[2017-10-12] MEDS: LORazepam 2 MG/ML INJ IVP PRN ×2 (17:22→19:56)
[2017-10-13] MEDS: LORazepam 2 MG/ML INJ IVP PRN ×3 (00:04→21:50)
[2017-10-13] MEDS: PIPERACILLIN/TAZO 3.375 GM/DEX 50 ML IV SCH ×2 (03:04→10:53)
[2017-10-13] MEDS: POTASSIUM Cl (KCl) 50 ML IV SCH ×2 (04:07→04:49)
[2017-10-13 04:08] LABS: PLATELET COUNT 310 10^3/uL (150-400)
--- NOTE | 2017-10-13 06:10 | SOAPPROG ---
SOAP Progress Note Assessment/Plan: Assessment:s/p repair distal esophogeal perforation with debridement of mediastinitis, morning CXR pending probable perforated distal esophogeal ulcer. Hemodynamically improved post resuscitation/drainage Patient's lack of impulsive control and understanding of the gravity of his situation make [facility] He has not only removed his own NGT but has now challenged his recent esophogeal repair by drinking canned beverages while strictly NPO His risk of complications, recurrent leak with subsequent sepsis and are high. I cannot emphasize enough how important it is to keep him NPO. His best chance of survival will be if the esophogeal repair heals without leaking. Plan: NPO Continue IV Zosyn/Fluconazole monitored care in ICU Stop Chest Tube suction OT/PT 10/12/17 07:24 10/13/17 06:10 Subjective: patient awake, mildly agitated but denies significant pain. During the night he apparently found a canned beverage in his backpack and drank it It was described by the RN as a 300ml "mocha' beverage. Objective: Vital Signs Temp Pulse Resp BP Pulse Ox 37.2 C 115 H 22 H 126/76 H 95 10/13/17 04:00 10/13/17 06:00 10/13/17 06:00 10/13/17 06:00 10/13/17 06:00 Microbiology 10/11/17 05:55 Gram Stain - Final Chest - Other Laboratory Results 10/13/17 03:30 10/13/17 03:30 10/12/17 10/13/17 10/14/17 05:59 05:59 05:59 Intake Total 4922 2469.7 Output Total 3170 1285 Balance 1752 1184.7 - Time Spent With Patient Time Spent With Patient: 10 - Pending Discharge Pending Discharge Within 24 Hours: No Pending Discharge Within 48 Hours: No Physical Exam - Physical Exam General Appearance: thin Respiratory: lungs clear, decreased breath sounds Cardiac/Chest: regular rate, rhythm Abdomen: non-tender, soft Male Genitalia: deferred Rectal: deferred Back: Normal inspection Skin: normal color, warm/dry Neuro/Psych: cognition abnormalities (appears mildly oversedated/confused), other (lower extremity paralysis) ICD10 Worksheet Patient Problems: Problems Problem Status Onset Boerhaave syndrome Acute Lactic acid acidosis Acute Respiratory distress Acute Acute infarction of spinal cord Acute Gastrointestinal hemorrhage Acute
--- NOTE | 2017-10-13 08:36 | PDINTPN ---
Prepress Specialist Progress Note Assessment/Plan: Assessment/Plan: * Status post esophageal rupture and repair by Dr. Godinez. * Mediastinitis and bilateral pleural space contamination present at surgery. Alia growing from chest cultures. On Diflucan and Zosyn * Sepsis: Resolving, secondary to 1. Off Levophed. * Bilateral chest tubes, pleural effusions. Draining well. -now on water seal * Acute respiratory failure: Resolved. On 2 L. * Ongoing tobacco abuse. Possible COPD? * Metabolic: Hypokalemia. On replacement protocol. * Prophylaxis: On pantoprazole and Lovenox. * Nutrition-none currently. Patient to be NPO for 5 days. * Hypertension * Coronary artery disease, * Spinal cord infarction with lower extremity weakness. Subjective: Sitting up in bed. Pain tolerable. Complains of hunger and thirst Objective: Vital Signs Temp Pulse Resp BP Pulse Ox 37.2 C 115 H 22 H 126/76 H 95 10/13/17 04:00 10/13/17 06:00 10/13/17 06:00 10/13/17 06:00 10/13/17 06:00 Microbiology 10/11/17 05:55 Gram Stain - Final Chest - Other Laboratory Results 10/13/17 03:30 10/13/17 03:30 10/12/17 10/13/17 10/14/17 05:59 05:59 05:59 Intake Total 4922 2469.7 Output Total 3170 1285 Balance 1752 1184.7 - Time Spent With Patient Time Spent With Patient: 35 min of time spent with patient, over 1/2 involved with coordination of care counseling. Case discussed with nursing Physical Exam - Physical Exam General Appearance: alert, no apparent distress EENT: PERRL/EOMI Neck: non-tender, full range of motion, supple, normal inspection Respiratory: crackles (Few basilar), No respiratory distress, No wheezing Cardiac/Chest: normal peripheral pulses, regular rate, rhythm Peripheral Pulses: 2+: carotid (R), carotid (L), femoral (R), femoral (L), dorsalis-pedis (R), dorsalis-pedis (L) Abdomen: normal bowel sounds, non-tender, soft Male Genitalia: deferred Rectal: deferred Extremities: normal range of motion, non-tender, normal inspection, normal capillary refill Neuro/Psych: alert ICD10 Worksheet Patient Problems: Problems Problem Status Onset Boerhaave syndrome Acute Lactic acid acidosis Acute Respiratory distress Acute Acute infarction of spinal cord Acute Gastrointestinal hemorrhage Acute
[2017-10-13] MEDS: CHLORHEXIDINE GLUCONATE 15 ML UDL PO SCH ×2 (08:38→20:27)
[2017-10-13] MEDS: FLUCONAZOLE/NaCl 200 ML IV SCH (08:38)
[2017-10-13] MEDS: PANTOPRAZOLE SODIUM 40 MG VIAL IVP SCH ×2 (08:38→20:27)
[2017-10-13] MEDS: ENOXAPARIN 40 MG/0.4 ML SYR SC SCH (08:38)
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
[2017-10-13] MEDS: POTASSIUM Cl (KCl) 20 MEQ in D5W LR 1,000 ML IV SCH (16:58)
[2017-10-13] MEDS: AMPICILLIN/SULBACTAM 3 GM in NS 100 ML IV SCH (18:12)
[2017-10-13] MEDS ORDERED: POTASSIUM Cl (KCl) 50 ML IV ONE (19:39)
[2017-10-14] MEDS: AMPICILLIN/SULBACTAM 3 GM in NS 100 ML IV SCH ×4 (00:40→18:27)
[2017-10-14] MEDS: LORazepam 2 MG/ML INJ IVP PRN (00:41)
[2017-10-14] MEDS: POTASSIUM Cl (KCl) 20 MEQ in D5W LR 1,000 ML IV SCH ×2 (03:18→16:03)
--- NOTE | 2017-10-14 07:54 | SOAPPROG ---
SOAP Progress Note Assessment/Plan: Assessment:s/p repair distal esophogeal perforation with debridement of mediastinitis- mixed oral tico and tiffanie on Zosyn/Fluconazole currently oversedated but hemodynamically stable without ongoing signs of sepsis Patient's lack of impulsive control and understanding of the gravity of his situation make him unsafe for transfer to med-surg Plan: NPO Continue IV Zosyn/Fluconazole monitored care in ICU Stop Chest Tube suction OT/PT Gastrograffin swallow tomorrow 10/12/17 07:24 10/13/17 06:10 10/14/17 07:51 Subjective: obtunded/not responding to verbal stimuli Objective: Vital Signs Temp Pulse Resp BP Pulse Ox 37.2 C 90 33 H 144/87 H 96 10/13/17 22:00 10/14/17 06:00 10/14/17 06:00 10/14/17 06:00 10/14/17 06:00 Microbiology 10/11/17 05:55 Gram Stain - Final Chest - Other Laboratory Results 10/13/17 03:30 10/14/17 04:40 10/13/17 10/14/17 10/15/17 05:59 05:59 05:59 Intake Total 2469.7 2398 Output Total 1285 2350 Balance 1184.7 48 Physical Exam - Physical Exam General Appearance: obtunded Respiratory: decreased breath sounds Cardiac/Chest: regular rate, rhythm, other (CT sites uncomplicated/dressings intact/On-Q catheter capped) Abdomen: non-tender, soft ICD10 Worksheet Patient Problems: Problems Problem Status Onset Boerhaave syndrome Acute Lactic acid acidosis Acute Respiratory distress Acute Acute infarction of spinal cord Acute Gastrointestinal hemorrhage Acute
--- NOTE | 2017-10-14 09:21 | PCMIDPN ---
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 R posterior chest incision, surgical dressing still in place; B chest tubes with serosanguineous drainage. Strict NPO --continue fluconazole 400mg + unasyn for empiric oral tico coverage --add on LFTs to lab in light of azole therapy --consider changing TLC to PICC --add on susceptibilities of Alia #Left Arm swelling: Rule out DVT meds unasyn 3gm IV q6, #1 Fluconazole 400mg IV daily, # 3 micro 10/11 OR cx polymicrobial gram stain cx: alia Subjective: Patient not very interactive, just waking up. No events overnight Objective: Vital Signs Temp Pulse Resp BP Pulse Ox 37.2 C 90 33 H 144/87 H 96 10/13/17 22:00 10/14/17 06:00 10/14/17 06:00 10/14/17 06:00 10/14/17 06:00 Microbiology 10/11/17 05:55 Gram Stain - Final Chest - Other Laboratory Results 10/13/17 03:30 10/14/17 04:40 10/13/17 10/14/17 10/15/17 05:59 05:59 05:59 Intake Total 2469.7 2398 Output Total 1285 2350 Balance 1184.7 48 - Physical Exam General Appearance: alert, no apparent distress, cachetic EENT: poor dentition, No thrush Respiratory: coarse breath sounds, No accessory muscle use Neck: supple Cardiac/Chest: tachycardia Extremities: swelling (left arm), other (muscle wasting LE), No pedal edema Abdomen: non-tender, soft Skin: pallor, No rash Neuro/Psych: alert - Line/s other Lines: other (L subclavian TLC), No drainage, No erythema - Time Spent With Patient Time Spent with Patient: greater than 25 minutes Time Spent with Patient: Greater than 25 minutes spent on this patients care, greater than 50% of time spent counseling, educating, and coordinating care regarding the above mentioned plan. ICD10 Worksheet Patient Problems: Problems Problem Status Onset Boerhaave syndrome Acute Lactic acid acidosis Acute Respiratory distress Acute Acute infarction of spinal cord Acute Gastrointestinal hemorrhage Acute
[2017-10-14] MEDS: PANTOPRAZOLE SODIUM 40 MG VIAL IVP SCH ×2 (09:34→21:29)
[2017-10-14] MEDS: CHLORHEXIDINE GLUCONATE 15 ML UDL PO SCH ×2 (09:34→21:29)
[2017-10-14] MEDS: ENOXAPARIN 40 MG/0.4 ML SYR SC SCH (09:34)
[2017-10-14] MEDS: FLUCONAZOLE/NaCl 200 ML IV SCH (09:35)
--- NOTE | 2017-10-14 09:55 | PDINTPN ---
Lead Caster Progress Note Assessment/Plan: Assessment/Plan: * Status post esophageal rupture and repair by Dr. Godinez. -continue NPO for now * Mediastinitis and bilateral pleural space contamination present at surgery. Alia growing from chest cultures. On Diflucan and Zosyn * Sepsis: Resolving, secondary to 1. Off Levophed. * Bilateral chest tubes, pleural effusions. Draining well. -now on water seal * Acute respiratory failure: Resolved. On 2 L. * Ongoing tobacco abuse-probable chronic obstructive pulmonary disease -continue nebs * Metabolic: Hypokalemia. On replacement protocol. * Prophylaxis: On pantoprazole and Lovenox. * Nutrition-none currently. Patient to be NPO for 5 days. * Hypertension * Coronary artery disease, * History of Spinal cord infarction with lower extremity weakness. Subjective: Sitting up in bed. Resting comfortably. Pain well tolerated. Thirsty Objective: Vital Signs Temp Pulse Resp BP Pulse Ox 37.4 C 91 24 H 149/94 H 90 L 10/14/17 08:00 10/14/17 08:00 10/14/17 08:00 10/14/17 08:00 10/14/17 08:00 Microbiology 10/11/17 05:55 Gram Stain - Final Chest - Other Laboratory Results 10/13/17 03:30 10/14/17 04:40 10/13/17 10/14/17 10/15/17 05:59 05:59 05:59 Intake Total 2469.7 2398 Output Total 1285 2350 Balance 1184.7 48 - Time Spent With Patient Time Spent With Patient: 25 min of time spent with patient, over 1/2 involved with coordination of care or counseling Physical Exam - Physical Exam General Appearance: alert, no apparent distress EENT: PERRL/EOMI Neck: non-tender, full range of motion, supple, normal inspection Respiratory: chest non-tender, lungs clear, normal breath sounds, prolonged expiration Cardiac/Chest: normal peripheral pulses, regular rate, rhythm Abdomen: normal bowel sounds, non-tender, soft Male Genitalia: deferred Rectal: deferred Skin: normal color, warm/dry Extremities: non-tender Neuro/Psych: alert ICD10 Worksheet Patient Problems: Problems Problem Status Onset Boerhaave syndrome Acute Lactic acid acidosis Acute Respiratory distress Acute Acute infarction of spinal cord Acute Gastrointestinal hemorrhage Acute
--- NOTE | 2017-10-14 11:21 | PDRADPN ---
Radiology Procedure Note Date of Procedure: 10/14/17 Radiologist: Oniel Fernando Anesthesia: Local (Specify) Pre-op Diagnosis: needs agents' records clerk abx Post-op Diagnosis: same Indication: access Procedure: PICC Finding(s): patent RUE basilic, 43cm DL power picc, good position, ok to use Inf/Abcess present in the surg proc area at time of surgery?: No EBL: Minimal Complications: none
--- NOTE | 2017-10-14 14:46 | ASMTCMCOM ---
CM Note CM Note Notes: PT recommending HC; OT=SNF; Patient still needs a cog eval RN reports that he is A & O x 2. He is W/C bound at home needs a SBA to transfer. Patient difficult to talk to given cog status and no family/friend support. Contact made to [facility] to see if they were involved in providing care at home for patient? [facility] not involved. Contacted [facility] for names of emergency contacts- [facility] said that no one is listed. Patient may need SNF Rehab on discharge and will need a ULTC-100. If patient is deemed not decisional a Guardian may need to be named? Date Signed: 10/14/2017 02:46 PM Electronically Signed By:Corina Lindsey LCSW
[2017-10-14] MEDS: POTASSIUM Cl (KCl) 50 ML IV SCH ×3 (21:26→23:32)
[2017-10-15] MEDS: AMPICILLIN/SULBACTAM 3 GM in NS 100 ML IV SCH ×4 (00:41→18:07)
[2017-10-15] MEDS: POTASSIUM Cl (KCl) 20 MEQ in D5W LR 1,000 ML IV SCH ×2 (02:43→21:51)
[2017-10-15 04:59] LABS: PLATELET COUNT 327 10^3/uL (150-400)
--- NOTE | 2017-10-15 07:56 | SOAPPROG ---
SOAP Progress Note Assessment/Plan: Assessment:s/p repair distal esophogeal perforation with debridement of mediastinitis- mixed oral tico and tiffanie on Zosyn/Fluconazole clinically improved sensorium gastrograffin swallow pending Plan: NPO Continue IV Zosyn/Fluconazole monitored care SDU OT/PT Gastrograffin swallow today/start clear liquids if no leak 10/12/17 07:24 10/13/17 06:10 10/14/17 07:51 10/15/17 07:53 Subjective: awake/responsive, mild confusion-not agitated Objective: Vital Signs Temp Pulse Resp BP Pulse Ox 38.3 C 114 H 32 H 133/83 H 93 10/15/17 04:00 10/15/17 04:00 10/15/17 04:00 10/15/17 04:00 10/15/17 04:00 Microbiology 10/11/17 05:55 Gram Stain - Final Chest - Other Laboratory Results 10/15/17 04:48 10/15/17 04:48 10/14/17 10/15/17 10/16/17 05:59 05:59 05:59 Intake Total 2398 2798 Output Total 2350 3850 Balance 48 -1052 Physical Exam - Physical Exam Respiratory: lungs clear Cardiac/Chest: regular rate, rhythm, other (CT/thoracotomy dressings intact) Abdomen: non-tender, soft Neuro/Psych: alert, other (less agitated/mildly confursed) ICD10 Worksheet Patient Problems: Problems Problem Status Onset Boerhaave syndrome Acute Lactic acid acidosis Acute Respiratory distress Acute Acute infarction of spinal cord Acute Gastrointestinal hemorrhage Acute
--- NOTE | 2017-10-15 09:12 | PDINTPN ---
Forming Department End Finder Progress Note Assessment/Plan: Assessment/Plan: * Status post esophageal rupture and repair by Dr. Godinez. -continue NPO for now -Gastrografin swallow today * Mediastinitis and bilateral pleural space contamination present at surgery. Alia growing from chest cultures. On Diflucan and Zosyn * Sepsis: Resolved * Bilateral chest tubes, pleural effusions. Draining well. -now on water seal * Acute respiratory failure: Resolved. On 2 L. * Ongoing tobacco abuse-probable chronic obstructive pulmonary disease -continue nebs * Metabolic: Hypokalemia. On replacement protocol. * Prophylaxis: On pantoprazole and Lovenox. * Nutrition-none currently. Patient to be NPO for 5 days. * Hypertension * Coronary artery disease, * History of Spinal cord infarction with lower extremity weakness. Subjective: Sitting up in bed. In good spirits. Comfortable. Hungry. Objective: Vital Signs Temp Pulse Resp BP Pulse Ox 37.4 C 112 H 22 H 132/83 H 90 L 10/15/17 08:00 10/15/17 08:00 10/15/17 08:00 10/15/17 08:00 10/15/17 08:00 Microbiology 10/11/17 05:55 Gram Stain - Final Chest - Other Laboratory Results 10/15/17 04:48 10/15/17 04:48 10/14/17 10/15/17 10/16/17 05:59 05:59 05:59 Intake Total 2398 2798 Output Total 2350 3850 Balance 48 -1052 - Time Spent With Patient Time Spent With Patient: 25 min of time spent with patient, over 1/2 involved with coordination of care or counseling Physical Exam - Physical Exam General Appearance: alert, no apparent distress EENT: PERRL/EOMI Neck: non-tender, full range of motion, supple, normal inspection Respiratory: crackles (Bibasilar), No wheezing Cardiac/Chest: normal peripheral pulses, regular rate, rhythm, systolic murmur Peripheral Pulses: 2+: carotid (R), carotid (L), femoral (R), femoral (L), dorsalis-pedis (R), dorsalis-pedis (L) Abdomen: normal bowel sounds, non-tender, soft Male Genitalia: deferred Rectal: deferred Skin: normal color, warm/dry Extremities: non-tender Neuro/Psych: alert ICD10 Worksheet Patient Problems: Problems Problem Status Onset Boerhaave syndrome Acute Lactic acid acidosis Acute Respiratory distress Acute Acute infarction of spinal cord Acute Gastrointestinal hemorrhage Acute
--- NOTE | 2017-10-15 10:10 | PCMIDPN ---
Assessment/Plan: #Polymicrobial mediastinitis s/p repair distal acute esophageal perforation: Polymicrobial gram stain, cx growing C albicans, Baseline LFTs normal. Gastrografin show no leak today. --continue fluconazole 400mg + unasyn for empiric oral tico coverage --Alia sensi added yesterday --duration of therapy to be assessed #Left Arm swelling: only superficial DVT #Fever, mild elevation WBC, crackles R base - at risk for developing abscess related to esophageal perf. Doubt bacteremia. TLC removed yesterday. -- Chest CT scan today to assess if residual abscess meds unasyn 3gm IV q6, #2 Fluconazole 400mg IV daily, # 4 micro 10/11 OR cx polymicrobial gram stain cx: alia 10/11 blood cx (2) NGTD Care discussed with Dr Godinez Subjective: feeling okay describes pain starting in abdomen and coming up c/o chills no BM since admit surgery advancing to liquid diet Objective: Vital Signs Temp Pulse Resp BP Pulse Ox 37.4 C 112 H 22 H 132/83 H 90 L 10/15/17 08:00 10/15/17 08:00 10/15/17 08:00 10/15/17 08:00 10/15/17 08:00 Microbiology 10/11/17 05:55 Gram Stain - Final Chest - Other Laboratory Results 10/15/17 04:48 10/15/17 04:48 10/14/17 10/15/17 10/16/17 05:59 05:59 05:59 Intake Total 2398 2798 Output Total 2350 3850 Balance 48 -1052 - Physical Exam General Appearance: alert, no apparent distress EENT: poor dentition, No thrush Respiratory: crackles (R base), other (B chest tubes with serosang fluid), No accessory muscle use Neck: supple Cardiac/Chest: tachycardia Extremities: No pedal edema Abdomen: normal bowel sounds, non-tender, soft Male Genitalia: pakcer, No scrotal edema Skin: pallor, No rash Neuro/Psych: alert, normal mood/affect - Line/s RUE PICC Lines: No drainage, No erythema - Time Spent With Patient Time Spent with Patient: greater than 35 minutes Time Spent with Patient: Greater than 35 minutes spent on this patients care, greater than 50% of time spent counseling, educating, and coordinating care regarding the above mentioned plan. ICD10 Worksheet Patient Problems: Problems Problem Status Onset Boerhaave syndrome Acute Lactic acid acidosis Acute Respiratory distress Acute Acute infarction of spinal cord Acute Gastrointestinal hemorrhage Acute
[2017-10-15] MEDS: ENOXAPARIN 40 MG/0.4 ML SYR SC SCH (10:12)
[2017-10-15] MEDS: PANTOPRAZOLE SODIUM 40 MG VIAL IVP SCH ×2 (10:13→21:33)
[2017-10-15] MEDS: CHLORHEXIDINE GLUCONATE 15 ML UDL PO SCH ×2 (10:45→21:33)
[2017-10-15] MEDS: FLUCONAZOLE/NaCl 200 ML IV SCH (10:45)
[2017-10-15] MEDS ORDERED: IOPAMIDOL (ISOVUE-300) 100 ML BTL ONE (11:39)
[2017-10-15] MEDS: POTASSIUM Cl (KCl) 50 ML IV SCH ×3 (13:49→16:39)
[2017-10-15] MEDS ORDERED: POTASSIUM Cl (KCl) 50 ML IV ONE (21:06)
[2017-10-16] MEDS: AMPICILLIN/SULBACTAM 3 GM in NS 100 ML IV SCH ×4 (00:45→18:12)
--- NOTE | 2017-10-16 07:38 | SOAPPROG ---
SOAP Progress Note Assessment/Plan: Assessment:s/p repair distal esophogeal perforation with debridement of mediastinitis- mixed oral tico and tiffanie on Zosyn/Fluconazole clinically improved sensorium gastrograffin shows no leak/tolerated clear liquids Plan: continue clear liquids today Continue IV Unasyn/Fluconazole monitored care SDU OT/PT Thoracentesis left pleural effusion 10/12/17 07:24 10/13/17 06:10 10/14/17 07:51 10/15/17 07:53 10/16/17 07:36 Subjective: "I want toast and coffee" awake and alert/less agitated Objective: Vital Signs Temp Pulse Resp BP Pulse Ox 37.4 C 113 H 30 H 144/96 H 96 10/16/17 04:00 10/16/17 04:00 10/16/17 04:00 10/16/17 04:00 10/16/17 04:00 Microbiology 10/11/17 05:55 Gram Stain - Final Chest - Other Laboratory Results 10/15/17 04:48 10/16/17 04:40 10/15/17 10/16/17 10/17/17 05:59 05:59 05:59 Intake Total 2798 3176 Output Total 3850 1517 Balance -1052 1659 Physical Exam - Physical Exam General Appearance: no apparent distress Respiratory: lungs clear, decreased breath sounds (left base) Cardiac/Chest: regular rate, rhythm Abdomen: non-tender, soft Male Genitalia: deferred Rectal: deferred Back: Normal inspection Skin: warm/dry Neuro/Psych: alert ICD10 Worksheet Patient Problems: Problems Problem Status Onset Boerhaave syndrome Acute Lactic acid acidosis Acute Respiratory distress Acute Acute infarction of spinal cord Acute Gastrointestinal hemorrhage Acute
--- NOTE | 2017-10-16 09:15 | PDINTPN ---
Cluster Bore Operator Progress Note Assessment/Plan: Assessment/Plan: * Status post esophageal rupture and repair by Dr. Godinez. -continue NPO for now -Gastrografin swallow okay * Mediastinitis and bilateral pleural space contamination present at surgery. Alia growing from chest cultures. On Diflucan and Zosyn * Sepsis: Resolved * Bilateral pneumothoraces- bilateral chest tubes, pleural effusions. Draining well. -now on water seal * Acute respiratory failure: Resolved. On 2 L. * Ongoing tobacco abuse-probable chronic obstructive pulmonary disease -continue nebs * Metabolic: Hypokalemia. On replacement protocol. * Prophylaxis: On pantoprazole and Lovenox. 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 Subjective: Resting comfortably Objective: Vital Signs Temp Pulse Resp BP Pulse Ox 37.3 C 112 H 16 144/92 H 96 10/16/17 08:00 10/16/17 08:00 10/16/17 08:00 10/16/17 08:00 10/16/17 04:00 Microbiology 10/11/17 05:55 Gram Stain - Final Chest - Other Laboratory Results 10/15/17 04:48 10/16/17 04:40 10/15/17 10/16/17 10/17/17 05:59 05:59 05:59 Intake Total 2798 3176 Output Total 3850 1517 Balance -1052 1659 Laboratory Results 10/15/17 04:48 10/16/17 04:40 10/16/17 10/16/17 10/16/17 06:14 04:40 00:46 Potassium 4.1 mEq/L mEq/L (3.3 - 5.0) POC Glucose 119 mg/dL H mg/dL 131 mg/dL H mg/dL (70 - 100) (70 - 100) 10/15/17 10/15/17 18:10 17:59 Potassium 3.8 mEq/L mEq/L (3.3 - 5.0) POC Glucose 135 mg/dL H mg/dL (70 - 100) 10/11/17 05:55 Gram Stain - Final Chest - Other Anaerobic Culture - Preliminary Alia Albicans Prevotella Buccae 10/11/17 05:55 Fungal Culture - Preliminary Chest - Other Alia Albicans Chest [id number] by myself. Bilateral pneumothoraces unchanged. Right basilar atelectasis - Time Spent With Patient Time Spent With Patient: 25 min of time spent with patient, over 1/2 involved with coordination of care or counseling Physical Exam - Physical Exam General Appearance: WD/WN, alert, mild distress EENT: PERRL/EOMI, normal ENT inspection Neck: non-tender Respiratory: chest non-tender, lungs clear, normal breath sounds Cardiac/Chest: normal peripheral pulses, regular rate, rhythm Peripheral Pulses: 2+: carotid (R), carotid (L), femoral (R), femoral (L), dorsalis-pedis (R), dorsalis-pedis (L) Abdomen: normal bowel sounds, non-tender, soft Male Genitalia: deferred Rectal: deferred Skin: normal color, warm/dry Extremities: normal range of motion, non-tender, normal inspection, normal capillary refill Neuro/Psych: alert ICD10 Worksheet Patient Problems: Problems Problem Status Onset Boerhaave syndrome Acute Lactic acid acidosis Acute Respiratory distress Acute Acute infarction of spinal cord Acute Gastrointestinal hemorrhage Acute
[2017-10-16] MEDS: PANTOPRAZOLE SODIUM 40 MG VIAL IVP SCH ×2 (09:35→21:32)
[2017-10-16] MEDS: FLUCONAZOLE/NaCl 200 ML IV SCH (09:35)
[2017-10-16] MEDS: CHLORHEXIDINE GLUCONATE 15 ML UDL PO SCH ×2 (09:35→21:33)
[2017-10-16] MEDS: POTASSIUM Cl (KCl) 20 MEQ in D5W LR 1,000 ML IV SCH (09:40)
--- NOTE | 2017-10-16 11:58 | PCMIDPN ---
Assessment/Plan: 1.Perforation of distal esophagus with mediastinitis status post washout and repair: CT of the chest reviewed with Dr. Bullard. She will attempt to drain loculated collection, but there is also a collection superior to this that may or may not communicate that is concerning. Patient may require VATS moving forward. Continue Unasyn and fluconazole as is. Susceptibilities on Alia are pending. 10/16/17 11:59 Subjective: Says he feels about the same. Objective: Unasyn 3 g IV q.6 hours day 3 (antibiotics day 5) Fluconazole 400 mg IV daily day 5 T-max 37.8 degrees Vital Signs Temp Pulse Resp BP Pulse Ox 37.3 C 112 H 16 144/92 H 96 10/16/17 08:00 10/16/17 08:00 10/16/17 08:00 10/16/17 08:00 10/16/17 04:00 Microbiology 10/11/17 05:55 Gram Stain - Final Chest - Other Laboratory Results 10/15/17 04:48 10/16/17 04:40 10/15/17 10/16/17 10/17/17 05:59 05:59 05:59 Intake Total 2798 3176 Output Total 3850 1517 Balance -1052 1659 Chest cultures with 3+ Alia albicans and 2+ prevotella - Physical Exam General Appearance: no apparent distress, cachetic EENT: pharynx normal Respiratory: other (amphoric breath sounds left base) Cardiac/Chest: regular rate, rhythm, other (No overlying skin discoloration of his mediastinum. No crepitus) Extremities: other (PICC line right upper extremity looks fine) Skin: No rash ICD10 Worksheet Patient Problems: Problems Problem Status Onset Boerhaave syndrome Acute Lactic acid acidosis Acute Respiratory distress Acute Acute infarction of spinal cord Acute Gastrointestinal hemorrhage Acute
[2017-10-16] MEDS ORDERED: NALOXONE HCL 0.4 MG/ML INJ IVP PRN (15:11)
[2017-10-16] MEDS ORDERED: FLUMAZENIL 0.5 MG/5 ML MDV IVP PRN (15:11)
[2017-10-16] MEDS ORDERED: MIDAZOLAM 2 MG/2 ML VIAL IVP PRN (15:11)
[2017-10-16] MEDS ORDERED: fentaNYL 100 MCG/2 ML INJ IVP PRN (15:11)
[2017-10-16] MEDS ORDERED: LIDOCAINE 1% 300 MG/30 ML SDV ONE (15:15)
[2017-10-16] MEDS ORDERED: NS 1,000 ML IV SCH (15:15)
--- NOTE | 2017-10-16 15:37 | ASMTCMCOM ---
MERARI Note CM Note Notes: I went to speak with patient about discharge options. He feels that a 30 day rehab stay would be too much (per Medicaid, he'd need to stay for this long). 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 He said his house is disgusting. I explained that we couldn't release him to a situation like that. I explained that, were he able to get his house cleaned, we could possibly send him home with some supportive services. He's had [facility] in the past. I also suggested that we begin the application for HCBS (home community based services) for unskilled care. This is through Medicaid, and initiation takes awhile, but we can start the process. After being agreeable, patient became agitated when I asked him to sign this paperwork. He requested that I leave it with him for him to review before signing. I left a copy and the original is with Case Management. Patient also said he could arrange for someone to clean his house, by tomorrow. We'll have to keep checking in with him and with his care team to see what the most reasonable d/c plan is given his seemingly uncertain living situation. He will be screened for [employer] saw[employer] Medicaid should he agree to either HCBS services (mentioned above) or a 30 day SNF stay. Date Signed: 10/16/2017 03:36 PM Electronically Signed By:Jaz Purdy RN
--- NOTE | 2017-10-16 15:59 | PDPROPOC ---
Sedation Plan of Care Sedation Plan of Care: vital signs stable, mental status noted, patient educated of risks, benefits, alternatives, patient can tolerate sedation ASA Classification: ASA 3 Planned drugs: fentanyl, midazolam Mallampati Score: Class 2 Mallampati Reference Image: Patient passed 3-3-2 rule?: Yes
[2017-10-16] MEDS ORDERED: ONDANSETRON 4 MG/2 ML VIAL IVP PRN (17:27)
[2017-10-16] MEDS ORDERED: ACETAMINOPHEN 325 MG TAB PO PRN (17:27)
--- NOTE | 2017-10-16 17:27 | PDRADPN ---
Radiology Procedure Note Date of Procedure: 10/16/17 Radiologist: Anh Bullard Anesthesia: IV Sedation Pre-op Diagnosis: LT EMPYEMA Post-op Diagnosis: SAME Indication: NEEDS SAMPLING AND DRAINAGE Procedure: CT GUIDED LT FLUID ASPIRATION Finding(s): VERY COMPLEX COLLECTIONS NOT AMENDABLE TO PERC DRAIN. 1 CC ASPIRATED FROM COLLECTION WITH 6 FR CATHETER, CONFIRMING COMPLEXITY. SENT FOR REQUESTED LABS. Inf/Abcess present in the surg proc area at time of surgery?: No Complications: NONE IMMEDIATELY
[2017-10-16] MEDS: ENOXAPARIN 40 MG/0.4 ML SYR SC SCH (19:24)
[2017-10-16] MEDS ORDERED: POTASSIUM Cl (KCl) 50 ML IV ONE (22:37)
[2017-10-17] MEDS: AMPICILLIN/SULBACTAM 3 GM in NS 100 ML IV SCH ×5 (00:16→23:35)
[2017-10-17] MEDS: POTASSIUM Cl (KCl) 20 MEQ in D5W LR 1,000 ML IV SCH (00:17)
[2017-10-17] MEDS: NS 1,000 ML IV SCH ×2 (09:00→18:00)
[2017-10-17] MEDS: PANTOPRAZOLE SODIUM 40 MG VIAL IVP SCH ×2 (09:55→20:55)
[2017-10-17] MEDS: ENOXAPARIN 40 MG/0.4 ML SYR SC SCH (09:55)
[2017-10-17] MEDS: CHLORHEXIDINE GLUCONATE 15 ML UDL PO SCH ×2 (09:55→20:56)
[2017-10-17] MEDS: FLUCONAZOLE/NaCl 200 ML IV SCH (09:55)
--- NOTE | 2017-10-17 12:39 | ASMTCMCOM ---
CM Note CM Note Notes: CM met with Pt. Pt continues to have ambivelence re signing consent to request unskilled services through Medicaid. He would like to keep things "private" as much as possible. He shares that he thinks he can benefit from several hours a month of unskilled services and is interested in [facility] agencies that provide this for a fee. Pt may be moved to [facility] today. D/C Plan: TBD. CM will continue to follow. Date Signed: 10/17/2017 12:38 PM Electronically Signed By:Guerita Robles
--- NOTE | 2017-10-17 14:55 | PCMIDPN ---
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 Status post repair. Patient did have an attempted aspiration of a residual complex collection around the operative area. This yielded only a small amount of fluid. Alia albicans and prevotella growing in culture so far. At present would continue the Unasyn and fluconazole. it is possible that of clinical conditions deteriorate or if laboratory signs worsen that he may need VATS for debridement of the infected area. Plan: 1. Continue both Unasyn and fluconazole. 2. Follow up on sensitivity for the Alia albicans. 3. follow his clinical course and laboratory values. 10/17/17 15:23 10/17/17 15:23 10/17/17 15:24 Subjective: Patient is sitting up in bed. He looks significantly improved from Friday. He denies any fevers or chills. Wants to have his diet advanced and to have his urinary catheter removed so he can intermittently self catheterize as is his baseline. Objective: Unasyn # 4 Fluconazole # 6 Vital Signs Temp Pulse Resp BP Pulse Ox 37.7 C 97 20 126/78 H 94 10/17/17 11:50 10/17/17 11:50 10/17/17 11:50 10/17/17 11:50 10/17/17 11:50 Microbiology 10/11/17 05:55 Gram Stain - Final Chest - Other 10/16/17 17:25 Gram Stain - Final Thoracic Fluid - Aspirate Laboratory Results 10/15/17 04:48 10/17/17 05:00 10/16/17 10/17/17 10/18/17 05:59 05:59 05:59 Intake Total 3176 3272 Output Total 1517 1930 Balance 1659 1342 - Physical Exam General Appearance: WD/WN, alert, no apparent distress, non-toxic Respiratory: lungs clear, normal breath sounds, No respiratory distress Cardiac/Chest: regular rate, rhythm, No tachycardia Extremities: non-tender, normal inspection Skin: normal color, warm/dry, No rash Neuro/Psych: alert, normal mood/affect, oriented x 3 ICD10 Worksheet Patient Problems: Problems Problem Status Onset Boerhaave syndrome Acute Lactic acid acidosis Acute Respiratory distress Acute Acute infarction of spinal cord Acute Gastrointestinal hemorrhage Acute
--- NOTE | 2017-10-17 16:19 | SOAPPROG ---
SOAP Progress Note Assessment/Plan: Assessment:s/p repair distal esophogeal perforation with debridement of mediastinitis- mixed oral tico and tiffanie on Zosyn/Fluconazole clinically improved sensorium gastrograffin shows no leak/tolerated clear liquids Left posterior loculated effusion-aspirate cultures NGSF Plan: advance diet to Full Liquids Continue IV Unasyn/Fluconazole monitored care SDU OT/PT I agree with Dr. Lucas and will monitor his clinical course/discussed possible left VATS 10/12/17 07:24 10/13/17 06:10 10/14/17 07:51 10/15/17 07:53 10/16/17 07:36 10/17/17 16:15 Objective: Vital Signs Temp Pulse Resp BP Pulse Ox 37.7 C 97 20 126/78 H 94 10/17/17 11:50 10/17/17 11:50 10/17/17 11:50 10/17/17 11:50 10/17/17 11:50 Microbiology 10/16/17 17:25 Gram Stain - Final Thoracic Fluid - Aspirate 10/11/17 05:55 Gram Stain - Final Chest - Other Laboratory Results 10/15/17 04:48 10/17/17 05:00 10/16/17 10/17/17 10/18/17 05:59 05:59 05:59 Intake Total 3176 3272 Output Total 1517 1930 Balance 1659 1342 - Pending Discharge Pending Discharge Within 24 Hours: No Pending Discharge Within 48 Hours: No Physical Exam - Physical Exam General Appearance: alert Respiratory: lungs clear, decreased breath sounds, other (chest tube drainage serous) Cardiac/Chest: regular rate, rhythm, tachycardia Abdomen: non-tender, soft Neuro/Psych: alert, normal mood/affect ICD10 Worksheet Patient Problems: Problems Problem Status Onset Boerhaave syndrome Acute Lactic acid acidosis Acute Respiratory distress Acute Acute infarction of spinal cord Acute Gastrointestinal hemorrhage Acute
--- NOTE | 2017-10-17 16:54 | PDINTPN ---
Universal Branch Consultant Progress Note Assessment/Plan: 56 m admitted with esophageal perforation and mediastinitis s/p repair by Dr. Godinez and treated with Zosyn/fluconazole. He also had bilateral pneumothoraces and has chest tubes bilaterally, but underwent thoracentesis 10/16 due to persistent pleural effusion. Very little fluid was aspirated but cultures were negative. * Mediastinitis with loculated pleural fluid. He has remained afebrile though there was a small bump in WBC. Would follow for signs of deterioration before VATS. * PTX- persists but no evidence of leak, at least on right. Left without respiratory variation. May need to flush tube since output is low. TPA/DNase? will discuss * hypoxia- minimal O2 requirement * Esophageal rupture- s/p repair Subjective: feels better. asking for intraop photos Objective: Vital Signs Temp Pulse Resp BP Pulse Ox 37.7 C 97 20 126/78 H 94 10/17/17 11:50 10/17/17 11:50 10/17/17 11:50 10/17/17 11:50 10/17/17 11:50 Microbiology 10/16/17 17:25 Gram Stain - Final Thoracic Fluid - Aspirate 10/11/17 05:55 Gram Stain - Final Chest - Other Laboratory Results 10/15/17 04:48 10/17/17 05:00 10/16/17 10/17/17 10/18/17 05:59 05:59 05:59 Intake Total 3176 3272 Output Total 1517 1930 Balance 1659 1342 Physical Exam - Physical Exam General Appearance: alert, no apparent distress EENT: PERRL/EOMI Neck: supple Respiratory: lungs clear, normal breath sounds, No respiratory distress, No accessory muscle use Cardiac/Chest: regular rate, rhythm, No edema Abdomen: non-tender, soft, No distended Skin: normal color, warm/dry, No cyanosis Lymphatic: no adenopathy Extremities: No pedal edema Neuro/Psych: alert, normal mood/affect, oriented x 3 ICD10 Worksheet Patient Problems: Problems Problem Status Onset Boerhaave syndrome Acute Lactic acid acidosis Acute Respiratory distress Acute Acute infarction of spinal cord Acute Gastrointestinal hemorrhage Acute
[2017-10-17] MEDS ORDERED: POTASSIUM CL 20 MEQ/15 ML UDCUP PO ONE (21:00)
[2017-10-18] MEDS: AMPICILLIN/SULBACTAM 3 GM in NS 100 ML IV SCH ×4 (05:06→23:59)
[2017-10-18] MEDS: NS 1,000 ML IV SCH (05:11)
[2017-10-18 05:51] LABS: PLATELET COUNT 432 10^3/uL (150-400)
[2017-10-18] MEDS ORDERED: hydrALAZINE 20 MG/ML VIAL IVP PRN (08:07)
[2017-10-18] MEDS: PANTOPRAZOLE SODIUM 40 MG VIAL IVP SCH ×2 (08:20→20:08)
[2017-10-18] MEDS: CHLORHEXIDINE GLUCONATE 15 ML UDL PO SCH ×2 (08:20→20:08)
--- NOTE | 2017-10-18 08:53 | PDANEPAE ---
ANE History of Present Illness 56 year old male w/ recent esophageal rupture/mediastinitis returns to OR for VATS for left pleural effusion. ANE Past Medical History - Cardiovascular History Hx Hypertension: Yes Hx Arrhythmias: No Hx Chest Pain: No Hx Coronary Artery / Peripheral Vascular Disease: Yes Hx CHF / Valvular Disease: No Hx Palpitations: No - Pulmonary History Hx COPD: Yes Hx Asthma/Reactive Airway Disease: Yes Hx Recent Upper Respiratory Infection: No Hx Oxygen in Use at Home: No Hx Sleep Apnea: No Sleep Apnea Screening Result - Last Documented: Negative Pulmonary History Comment: Active smoker - Endocrine History Hx Diabetes: No Hypothyroid: No Hyperthyroid: No Obesity: no - Renal History Hx Renal Disorders: No - Liver History Hx Hepatic Disorders: No - Neurological & Psychiatric Hx Hx Neurological and Psychiatric Disorders: No - Cancer History Hx Cancer: No - GI History GERD: moderate Hx Gastrointestinal Disorders: Yes Gastrointestinal History Comment: Esophageal rupture surgically repaired on 06/29 - Other Health History Other Health History: Anemia - Chronic Pain History Chronic Pain: No ANE Review of Systems Review of systems is: negative Review of Systems: - Exercise capacity Exercise capacity: >=4 METS ANE Patient History - Allergies Allergies/Adverse Reactions: No Known Allergies Allergy (Verified 12/06/16 09:14) - Home Medications Home medications: home medication list seen and reviewed Home Medications: Ranitidine HCl [Acid Primer And Powder Canning Leader] 150 mg PO DAILY PRN 10/12/17 [Last Taken Unknown] - NPO status NPO Status: no food or drink >8 hours NPO Since - Liquids (Date): 10/18/17 NPO Since - Liquids (Time): 04:00 NPO Since - Solids (Date): 10/18/17 NPO Since - Solids (Time): 00:00 - Anes Hx Anes Hx: no prior problems - Smoking Hx Smoking Status: Heavy smoker - Family Anes Hx Family Anes Hx: neg - N/A ANE Labs/Vital Signs - Labs Result Diagrams: 10/18/17 05:20 10/18/17 05:20 - Vital Signs Vital Signs: reviewed preoperatively; see RN documention for details Blood Pressure: 149/105 Heart Rate: 103 Respiratory Rate: 18 O2 Sat (%): 94 Height: 167.64 cm Weight: 66.2 kg ANE Physical Exam - Airway Neck exam: FROM Mallampati Score: Class 3 Mouth exam: normal dental/mouth exam, small mouth opening - Pulmonary Pulmonary: inspiratory crackles - Cardiovascular Cardiovascular: regular rate and rhythym - ASA Status ASA Status: III ANE Anesthesia Plan Anesthesia Plan: general endotracheal anesthesia Specialized Airway: double lumen tube Total IV Anesthesia: No
--- NOTE | 2017-10-18 09:03 | SOAPPROG ---
SOAP Progress Note Assessment/Plan: Assessment:s/p repair distal esophogeal perforation with debridement of mediastinitis- mixed oral tico and tiffanie on Zosyn/Fluconazole clinically improved sensorium gastrograffin shows no leak/tolerated clear liquids Left posterior loculated effusion-aspirate cultures NGSF-clinically smoldering with low grade temps and rising wbc Plan: to OR for VATS this AM I discussd the indications for the procedure and reviewed CT images with the patient on PACS/informed consent was obtained Continue IV Unasyn/Fluconazole operative cultures 10/12/17 07:24 10/13/17 06:10 10/14/17 07:51 10/15/17 07:53 10/16/17 07:36 10/17/17 16:15 10/18/17 09:00 Subjective: awake/alert Objective: Vital Signs Temp Pulse Resp BP Pulse Ox 36.8 C 103 H 18 149/105 H 94 10/18/17 07:16 10/18/17 08:52 10/18/17 08:52 10/18/17 08:52 10/18/17 08:52 Microbiology 10/16/17 17:25 Gram Stain - Final Thoracic Fluid - Aspirate 10/11/17 05:55 Gram Stain - Final Chest - Other Laboratory Results 10/18/17 05:20 10/18/17 05:20 10/17/17 10/18/17 10/19/17 05:59 05:59 05:59 Intake Total 3272 2165 Output Total 1930 1730 425 Balance 1342 435 -425 Physical Exam - Physical Exam General Appearance: no apparent distress Respiratory: decreased breath sounds (left base) Cardiac/Chest: regular rate, rhythm, tachycardia Abdomen: non-tender, soft Back: Normal inspection Skin: warm/dry Neuro/Psych: alert, normal mood/affect, oriented x 3 ICD10 Worksheet Patient Problems: Problems Problem Status Onset Boerhaave syndrome Acute Lactic acid acidosis Acute Respiratory distress Acute Acute infarction of spinal cord Acute Gastrointestinal hemorrhage Acute
[2017-10-18] MEDS ORDERED: EPINEPHrine 1 MG/ML INJ ONE (09:05)
[2017-10-18] MEDS ORDERED: BUPIVACAINE 0.25% 30 ML SDV ONE ×3 (09:06→10:41)
[2017-10-18] MEDS ORDERED: fentaNYL 100 MCG/2 ML INJ ONE ×4 (09:08→12:44)
[2017-10-18] MEDS ORDERED: PROPOFOL 200 MG/20 ML VIAL ONE (09:08)
[2017-10-18] MEDS ORDERED: LIDOCAINE 2% 5 ML SDV ONE (09:13)
[2017-10-18] MEDS ORDERED: ROCURONIUM 100 MG/10 ML VIAL ONE (09:13)
[2017-10-18] MEDS ORDERED: MIDAZOLAM 2 MG/2 ML VIAL ONE (10:18)
[2017-10-18] MEDS ORDERED: DEXAMETHASONE 4 MG/ML VIAL ONE (11:18)
[2017-10-18] MEDS ORDERED: PHENYLEPHRINE HCL 100 MCG/ML SYR ONE (11:18)
[2017-10-18] MEDS ORDERED: ONDANSETRON 4 MG/2 ML VIAL ONE (11:18)
[2017-10-18] MEDS ORDERED: LR 500 ML IV PRN (11:19)
[2017-10-18] MEDS ORDERED: PHENYLEPHRINE HCL 100 MCG/ML SYR IVP PRN (11:19)
[2017-10-18] MEDS ORDERED: NALOXONE HCL 0.4 MG/ML INJ IVP PRN (11:19)
[2017-10-18] MEDS ORDERED: LABETALOL HCL 5 MG/ML 20 ML MDV IVP PRN (11:19)
[2017-10-18] MEDS ORDERED: ONDANSETRON 4 MG/2 ML VIAL IVP PRN (11:19)
[2017-10-18] MEDS ORDERED: DIAZEPAM 5 MG/ML 1 ML SYR IVP PRN (11:19)
--- NOTE | 2017-10-18 11:45 | POSTOPPROG ---
Post Op Note Date of Operation: 10/18/17 Surgeon: Michoacano Godinez (, FACS) Anesthesiologist: Chandra Steen MD Anesthesia: GET(General Endotracheal) Pre-op Diagnosis: loculated left pleural effusion Post-op Diagnosis: left empyema Procedure: left VATS/thoractomy with decortication Findings: chronic and acute findings Inf/Abcess present in the surg proc area at time of surgery?: Yes Depth: Organ Space Drains: Other (#36 right angle and #28 straight chest tubes) Specimen(s): culture left posterior pleural rind
[2017-10-18] MEDS: fentaNYL 100 MCG/2 ML INJ IVP PRN ×4 (12:09→13:17)
[2017-10-18] MEDS: FLUCONAZOLE/NaCl 200 ML IV SCH (12:22)
[2017-10-18] MEDS ORDERED: HYDROmorphONE/DILAUDID 1 MG/ML INJ ONE (12:44)
[2017-10-18] MEDS: HYDROmorphONE/DILAUDID 1 MG/ML INJ IVP PRN ×2 (12:47→13:15)
--- NOTE | 2017-10-18 14:09 | POSTANESTH ---
Post Anesthetic Evaluation Cardiovascular Status: Normal, Stable, Similar to Pre-Op Cond Respiratory Status: Similar to Pre-op Cond. Level of Consciousness/Mental Status: Can Participate in Eval, Alert and Oriented Pain Control: Adequate, Prn Tx Ordered Nausea/Vomiting Control: Adequate, Prn Tx Ordered Complications Possibly Related to Anesthesia: None Noted
[2017-10-18] MEDS: LR 1,000 ML IV SCH (14:55)
[2017-10-18] MEDS: LORazepam 2 MG/ML INJ IV PRN (18:16)
--- NOTE | 2017-10-18 19:43 | GOP ---
[f rep st] OPERATIVE REPORT DATE OF OPERATION: 10/18/2017 SURGEON: Michoacano Godinez MD, FACS ANESTHESIA: General by double-lumen endotracheal tube. ANESTHESIOLOGIST: Chandra Steen MD PREOPERATIVE DIAGNOSIS: 1. Status post right thoracotomy with repair of esophageal perforation 2017. 2. Loculated left posterior pleural effusion. POSTOPERATIVE DIAGNOSIS: 1. Status post right thoracotomy with repair of esophageal perforation 2017. 2. Left empyema. PROCEDURE PERFORMED: 1. Left VATS (video-assisted thoracic surgery). 2. Left thoracotomy with decortication. 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 Loculated posterior pleural effusion with a thick rind around the lower lobe and portion of the lingula. ESTIMATED BLOOD LOSS: 250 cc. DESCRIPTION OF PROCEDURE: After informed consent was obtained, the patient was brought to the operating room and placed under general anesthesia via double- lumen endotracheal tube. He was positioned in the right lateral decubitus with the left side up. The old chest tube was removed. The chest wall was prepped and draped in usual fashion. Before proceeding, a time-out and identification of the patient were performed. The previous chest tube incision was extended and the 7 mm thoracoscope was introduced and visibility was limited because of adhesions. Digital dissection was performed to mobilize some of these adhesions, but it became clear that the entire lower chest was obliterated and was not directly amenable to video- assisted thoracic surgery. I extended the incision through the 7th intercostal space for distance of approximately 20 cm and mobilized the serratus muscle and intercostal muscle to perform a mini thoracotomy. This allowed visualization of the inferior chest. The patient had chronic adhesions as well as an acute rind around the posterior aspect of the lower lobe and in the fissure. Abundant yellowish fibrinous exudate was debrided from the visceral pleura as well as the parietal pleura, and the posterolateral aspect of the chest completely decorticated using primarily blunt dissection. The chest was irrigated with several liters of normal saline and the lung inspected carefully for injury. There was no obvious air leak upon completion. After the lung was completely freed up, a 36-Tajik chest tube was placed through a posterior 9th intercostal space and directed posteriorly between the lung and the diaphragm. The major fissure was opened up and a 2nd area of undrained fluid was evacuated. A 28-Tajik chest tube was placed through the same intercostal space more anteriorly and directed toward the apex. Both of these tubes were secured to the chest with interrupted 2-0 silk suture. The inferior rib was drilled in 4 [address]. Interrupted #1 Ethibond sutures were used to perform a circumcostal suture. The rib approximators were used and the sutures were tied. Pleural catheters were introduced anteriorly and positioned above and in the intercostal space, secured to the skin with Dermabond. The serratus muscle was repaired with interrupted 2-0 Vicryl sutures. Subcutaneous tissues were closed with 2-0 Vicryl suture. Skin was closed with kenny. Sterile dressings were applied. The patient was returned extubated to the recovery room in satisfactory condition. Needle, sponge, and instrument count correct. COMPLICATIONS: None. /[id number]/MODL MTDD
[2017-10-19] MEDS: AMPICILLIN/SULBACTAM 3 GM in NS 100 ML IV SCH ×3 (05:44→17:05)
[2017-10-19] MEDS: LR 1,000 ML IV SCH (05:44)
[2017-10-19 06:04] LABS: PLATELET COUNT 429 10^3/uL (150-400)
[2017-10-19] MEDS: LORazepam 2 MG/ML INJ IV PRN ×2 (06:32→16:23)
--- NOTE | 2017-10-19 06:51 | SOAPPROG ---
SOAP Progress Note Assessment/Plan: Assessment:s/p repair distal esophogeal perforation with debridement of mediastinitis- mixed oral tico and tiffanie on Zosyn/Fluconazole clinically improved sensorium gastrograffin shows no leak/tolerated clear liquids s/p left thoractomy/decortication-GS + yeast moderate blood loss anemia Plan: recommended transfusion/will repeat H/H later today and obtain type and screen Continue IV Unasyn/Fluconazole operative cultures from 10/18 pending 10/12/17 07:24 10/13/17 06:10 10/14/17 07:51 10/15/17 07:53 10/16/17 07:36 10/17/17 16:15 10/18/17 09:00 10/19/17 06:49 Subjective: not using narcotics for pain/sitting up in bed Ativan 1mg q8H adequate per patient for pain control Objective: Vital Signs Temp Pulse Resp BP Pulse Ox 36.8 C 114 H 18 133/88 H 88 L 10/19/17 04:00 10/19/17 04:00 10/19/17 04:00 10/19/17 04:00 10/19/17 04:00 Microbiology 10/18/17 10:40 Gram Stain - Final Other - Tissue 10/16/17 17:25 Gram Stain - Final Thoracic Fluid - Aspirate Laboratory Results 10/19/17 05:38 10/19/17 05:38 10/18/17 10/19/17 10/20/17 05:59 05:59 05:59 Intake Total 2165 3443 Output Total 1730 1655 Balance 435 1788 Physical Exam - Physical Exam General Appearance: alert, no apparent distress Respiratory: lungs clear, decreased breath sounds, pain on movement, other (CT drainage serosang on left/serous on right) Cardiac/Chest: regular rate, rhythm, tachycardia Abdomen: non-tender, soft Neuro/Psych: alert, normal mood/affect ICD10 Worksheet Patient Problems: Problems Problem Status Onset Boerhaave syndrome Acute Lactic acid acidosis Acute Respiratory distress Acute Acute infarction of spinal cord Acute Gastrointestinal hemorrhage Acute
[2017-10-19] MEDS: PANTOPRAZOLE SODIUM 40 MG VIAL IVP SCH ×2 (08:13→20:26)
[2017-10-19] MEDS: CHLORHEXIDINE GLUCONATE 15 ML UDL PO SCH ×2 (08:13→20:28)
[2017-10-19] MEDS: FLUCONAZOLE/NaCl 200 ML IV SCH (08:41)
[2017-10-19] MEDS: ENOXAPARIN 40 MG/0.4 ML SYR SC SCH (09:25)
--- NOTE | 2017-10-19 11:03 | PCMIDPN ---
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 Status post repair and then return to the OR yesterday for decortication and thoracotomy. Would continue the Unasyn and fluconazole. Will continue to follow his clinical progress and chest tube output over the next couple of days. Plan: 1. Continue both Unasyn and fluconazole. 2. Follow up on sensitivity for the Alia albicans. 3. follow his clinical course and laboratory values. Subjective: Patient is sitting up in his hospital bed. He notes no new complaint. He states that he has no pain as long as he is not moving. Has a mild amount of shortness of breath after his thoracotomy yesterday. Chest tubes are in place and operational. Objective: Unasyn # 6 Fluconazole # 8 Vital Signs Temp Pulse Resp BP Pulse Ox 37.1 C 122 H 16 130/86 H 90 L 10/19/17 07:20 10/19/17 07:20 10/19/17 07:20 10/19/17 07:20 10/19/17 07:20 Microbiology 10/18/17 10:40 Gram Stain - Final Other - Tissue 10/16/17 17:25 Gram Stain - Final Thoracic Fluid - Aspirate Laboratory Results 10/19/17 05:38 10/19/17 05:38 10/18/17 10/19/17 10/20/17 05:59 05:59 05:59 Intake Total 2165 3443 Output Total 1730 1655 Balance 435 1788 - Physical Exam General Appearance: WD/WN, alert, no apparent distress, non-toxic Respiratory: lungs clear, normal breath sounds, other (Chest tubes in place bilaterally. Serous fluid from the right side serosanguineous from the left.), No respiratory distress Cardiac/Chest: regular rate, rhythm, tachycardia, No irregularly irregular Skin: normal color, warm/dry, No rash Neuro/Psych: alert, normal mood/affect, oriented x 3 ICD10 Worksheet Patient Problems: Problems Problem Status Onset Boerhaave syndrome Acute Lactic acid acidosis Acute Respiratory distress Acute Acute infarction of spinal cord Acute Gastrointestinal hemorrhage Acute
[2017-10-19] MEDS: NS 1,000 ML IV SCH (17:06)
[2017-10-20] MEDS: AMPICILLIN/SULBACTAM 3 GM in NS 100 ML IV SCH ×5 (01:45→23:40)
[2017-10-20] MEDS: NS 1,000 ML IV SCH ×2 (04:31→17:59)
[2017-10-20 04:48] LABS: PLATELET COUNT 444 10^3/uL (150-400)
--- NOTE | 2017-10-20 06:45 | SOAPPROG ---
SOAP Progress Note Assessment/Plan: Assessment:s/p repair distal esophogeal perforation with debridement of mediastinitis- mixed oral tico and tiffanie on Zosyn/Fluconazole clinically improved sensorium gastrograffin shows no leak/tolerated clear liquids s/p left thoractomy/decortication-GS + yeast/C. albicans on culture moderate blood loss anemia Hgb 5.9 this AM Haroon refused blood transfusion yesterday/I explained the medical indications again and he now agrees Plan: transfuse 1 unit PRBC and monitor H/H Continue IV Unasyn/Fluconazole Continue Full Liquid diet 10/12/17 07:24 10/13/17 06:10 10/14/17 07:51 10/15/17 07:53 10/16/17 07:36 10/17/17 16:15 10/18/17 09:00 10/19/17 06:49 10/20/17 06:42 Objective: Vital Signs Temp Pulse Resp BP Pulse Ox 36.9 C 108 H 24 H 133/88 H 95 10/20/17 04:00 10/20/17 04:00 10/20/17 04:00 10/20/17 04:00 10/20/17 04:00 Microbiology 10/16/17 17:25 Gram Stain - Final Thoracic Fluid - Aspirate Body Fluid Culture - Final 10/18/17 10:40 Gram Stain - Final Other - Tissue Laboratory Results 10/20/17 04:35 10/19/17 05:38 10/19/17 10/20/17 10/21/17 05:59 05:59 05:59 Intake Total 3443 2860 Output Total 1655 1500 Balance 1788 1360 Physical Exam - Physical Exam General Appearance: no apparent distress, thin Respiratory: lungs clear, decreased breath sounds Cardiac/Chest: regular rate, rhythm Abdomen: non-tender, soft Male Genitalia: deferred, other (patient self cathing) Rectal: deferred Back: Normal inspection Skin: warm/dry, pallor Neuro/Psych: alert, oriented x 3 ICD10 Worksheet Patient Problems: Problems Problem Status Onset Boerhaave syndrome Acute Lactic acid acidosis Acute Respiratory distress Acute Acute infarction of spinal cord Acute Gastrointestinal hemorrhage Acute
[2017-10-20] MEDS: FLUCONAZOLE/NaCl 200 ML IV SCH (08:49)
[2017-10-20] MEDS: ENOXAPARIN 40 MG/0.4 ML SYR SC SCH (08:49)
[2017-10-20] MEDS: PANTOPRAZOLE SODIUM 40 MG VIAL IVP SCH ×2 (08:49→20:59)
[2017-10-20] MEDS: CHLORHEXIDINE GLUCONATE 15 ML UDL PO SCH ×2 (08:50→21:00)
--- NOTE | 2017-10-20 16:12 | PCMIDPN ---
Assessment/Plan: Assessment/Plan: * Mediastinitis status post esophageal rupture with subsequent empyema status post VATS: Patient with left-sided VATS performed on 10/18/2017 with pleural cultures now showing growth of yeast. Alai albicans isolate from mediastinitis is azole susceptible. Continue Unasyn (targeting mixed oral tico including Prevotella) and fluconazole. Will need prolonged course of antibiotic therapy based on presence of empyema. 10/20/17 16:08 10/20/17 16:13 Subjective: Patient eager for hospital discharge. Clinical course and findings reviewed. Patient recently underwent left-sided VATS on 10/18/2017 with findings of empyema and thick rind. Objective: Vital Signs Temp Pulse Resp BP Pulse Ox 37 C 107 H 18 136/84 H 96 10/20/17 15:38 10/20/17 15:38 10/20/17 15:38 10/20/17 15:38 10/20/17 15:38 Microbiology 10/18/17 10:40 Gram Stain - Final Other - Tissue 10/11/17 05:55 Gram Stain - Final Chest - Other Anaerobic Culture - Final Alia Albicans Prevotella Buccae 10/16/17 17:25 Gram Stain - Final Thoracic Fluid - Aspirate Body Fluid Culture - Final Laboratory Results 10/20/17 04:35 10/19/17 05:38 10/19/17 10/20/17 10/21/17 05:59 05:59 05:59 Intake Total 3443 2860 350 Output Total 1655 1500 1500 Balance 1788 1360 -1150 Unasyn # 7 Fluconazole # 9 Pleural gram stain and cultures showing 1+ yeast with growth of Alia albicans Mediastinal culture with growth of Prevotella and Alia albicans (fluconazole susceptible) - Physical Exam General Appearance: alert, no apparent distress EENT: No thrush, No conjunctival petechiae Respiratory: coarse breath sounds (Right base; thoracotomy incision with intact staple line without drainage) Cardiac/Chest: tachycardia Abdomen: non-tender - Line/s RUE PICC Lines: No drainage, No erythema ICD10 Worksheet Patient Problems: Problems Problem Status Onset Boerhaave syndrome Acute Lactic acid acidosis Acute Respiratory distress Acute Acute infarction of spinal cord Acute Gastrointestinal hemorrhage Acute
--- NOTE | 2017-10-20 16:14 | ASMTCMCOM ---
CM Note CM Note Notes: CM spoke to MARY ELLEN Ennis regarding d/c POC. CM met w/ pt for dispo planning. Pt is agreeable to having HC at time of d/c. Pt reports that he had [facility] in the past and would like to use them again. Pt is interested in having HCBS. CM communicated this to Marni with [facility]. Marni will meet w/ pt and sign him uip for HCBS. CM to follow. Plan: [facility]; PT, OT Date Signed: 10/20/2017 04:13 PM Electronically Signed By:LISSA North
--- NOTE | 2017-10-21 21:48 | PCMIDPN ---
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 Cultures for both surgical interventions showing C. albicans with first isolate showing susceptibility to fluconazole. Also treating typical oral bacterial pathogens. No new labs today. Blood cultures were negative. --continue Unasyn and fluconazole, will need prolonged therapy, but may not necessary need to be IV for entire course --continue to monitor cultures --need to check LFTs, normal last 10/14/17 Meds Unasyn 3gm IV q6h, #8 Fluconazole 400mg daily #10 Subjective: no new c/o, pain controlled Exam Gen: thin nontoxic NAD HEENT: poor dentition CV: tachy RR Chest: decreased BS B bases, R CT with straw colored cloudy fluid; L CT with serosang fluid; R posterior incision c/d/I, kenny in place Abd: soft NT Ext : no edema Skin: no rash RUE PICC c/d/i Objective: Vital Signs Temp Pulse Resp BP Pulse Ox 36.9 C 105 H 20 154/89 H 92 10/20/17 23:25 10/20/17 23:25 10/20/17 23:25 10/20/17 23:25 10/20/17 23:25 Laboratory Results 10/20/17 04:35 10/19/17 05:38 10/20/17 10/21/17 10/22/17 05:59 05:59 05:59 Intake Total 2860 1450 Output Total 1500 1750 Balance 1360 -300 - Time Spent With Patient Time Spent with Patient: greater than 25 minutes Time Spent with Patient: Greater than 25 minutes spent on this patients care, greater than 50% of time spent counseling, educating, and coordinating care regarding the above mentioned plan. ICD10 Worksheet Patient Problems: Problems Problem Status Onset Boerhaave syndrome Acute Lactic acid acidosis Acute Respiratory distress Acute Acute infarction of spinal cord Acute Gastrointestinal hemorrhage Acute
--- NOTE | 2017-10-21 22:30 | ASMTCMCOM ---
CM Note CM Note Notes: Karyna from [facility] met w/ pt for HCBS services. Pt refused to sign. CM made a referral for pt to [facility]. Pt is not interested in [facility] services at this time. Pt will d/c with [facility] when medically stable to d/c. CM to follow. Plan: [facility]; PT, OT Date Signed: 10/21/2017 02:15 PM Electronically Signed By:LISSA North
--- NOTE | 2017-10-21 22:31 | ASMTCMCOM ---
CM Note CM Note Notes: CM spoke to Fernanda at [facility]. Fernanda reports that pts chest tubes will need to be pulled in order for them to accept pt, prior to d/c. Fernanda reports that they are unable to start care until 10/24/17. CM to follow. Plan: [facility], PT, OT Date Signed: 10/21/2017 04:18 PM Electronically Signed By:LISSA North
[2017-10-22] MEDS: AMPICILLIN/SULBACTAM 3 GM in NS 100 ML IV SCH ×5 (05:42→23:18)
[2017-10-22] MEDS: FLUCONAZOLE/NaCl 200 ML IV SCH ×2 (05:43→08:43)
[2017-10-22] MEDS: ENOXAPARIN 40 MG/0.4 ML SYR SC SCH ×2 (05:43→08:47)
[2017-10-22] MEDS: CHLORHEXIDINE GLUCONATE 15 ML UDL PO SCH ×3 (05:43→20:07)
[2017-10-22] MEDS: PANTOPRAZOLE SODIUM 40 MG VIAL IVP SCH ×3 (05:43→20:07)
[2017-10-22 06:11] LABS: PLATELET COUNT 703 10^3/uL (150-400)
[2017-10-22 11:36] LABS: PLATELET COUNT 609 10^3/uL (150-400)
[2017-10-22] MEDS: NS 1,000 ML IV SCH (13:07)
--- NOTE | 2017-10-22 14:46 | SOAPPROG ---
SOAP Progress Note Assessment/Plan: Assessment:s/p repair distal esophogeal perforation with debridement of mediastinitis- mixed oral tico and tiffanie on Zosyn/Fluconazole clinically improved sensorium gastrograffin shows no leak/tolerated clear liquids s/p left thoractomy/decortication-GS + yeast/C. albicans on culture moderate blood loss anemia Hgb this AM Plan: Continue IV Unasyn/Fluconazole Continue Soft diet (low fiber) for now. Anticipate CT removal when output <100ml/day and no leukocytosis 10/12/17 07:24 10/13/17 06:10 10/14/17 07:51 10/15/17 07:53 10/16/17 07:36 10/17/17 16:15 10/18/17 09:00 10/19/17 06:49 10/20/17 06:42 10/22/17 14:43 Objective: Vital Signs Temp Pulse Resp BP Pulse Ox 36.8 C 105 H 14 148/96 H 92 10/22/17 08:00 10/22/17 08:00 10/22/17 08:00 10/22/17 08:00 10/22/17 08:00 Microbiology 10/18/17 10:40 Gram Stain - Final Other - Tissue Laboratory Results 10/22/17 05:50 10/19/17 05:38 10/21/17 10/22/17 10/23/17 05:59 05:59 05:59 Intake Total 1450 500 Output Total 1750 1000 700 Balance -300 -500 -700 - Pending Discharge Pending Discharge Within 24 Hours: No Pending Discharge Within 48 Hours: No Physical Exam - Physical Exam General Appearance: no apparent distress Respiratory: lungs clear, decreased breath sounds, crackles Cardiac/Chest: other (bilateral CT dressings changed/left On-Q caths removed) Abdomen: non-tender, soft Male Genitalia: deferred Rectal: deferred Skin: normal color, warm/dry Extremities: other (PICC RUE) Neuro/Psych: no motor/sensory deficits, alert, normal mood/affect ICD10 Worksheet Patient Problems: Problems Problem Status Onset Boerhaave syndrome Acute Lactic acid acidosis Acute Respiratory distress Acute Acute infarction of spinal cord Acute Gastrointestinal hemorrhage Acute
--- NOTE | 2017-10-22 14:58 | SOAPPROG ---
[facility] Patient Name: CALIXTO EUGENE Rpt#: [id number] Unit Number: [id number] Attending/ER Physician: MICHOACANO GODINEZ Patient Type: ADM IN Adm Date/Source: 10/11/17 EMR Discharge Date: Primary Carrier: [employer] [facility] IP SOAP NOTE SOAP Progress Note Assessment/Plan: Assessment:s/p repair distal esophogeal perforation with debridement of mediastinitis- mixed oral tico and tiffanie on Zosyn/Fluconazole s/p left thoractomy/decortication-GS + yeast/C. albicans on culture AM cbc pending Plan: check H/H Continue IV Unasyn/Fluconazole per ID Continue soft diet increase activity 10/12/17 07:24 10/13/17 06:10 10/14/17 07:51 10/15/17 07:53 10/16/17 07:36 10/17/17 16:15 10/18/17 09:00 10/19/17 06:49 10/20/17 06:42 10/21/17 08:28 Subjective: sitting up in bed eating eggs for breakfast reports good pain control Objective: Vital Signs Temp Pulse Resp BP Pulse Ox 36.9 C 105 H 20 154/89 H 92 10/20/17 23:25 10/20/17 23:25 10/20/17 23:25 10/20/17 23:25 10/20/17 23:25 Microbiology 10/18/17 10:40 Gram Stain - Final Other - Tissue 10/11/17 05:55 Gram Stain - Final Chest - Other Anaerobic Culture - Final Tiffanie Albicans Prevotella Buccae Laboratory Results 10/19/17 05:38 10/20/17 10/21/17 10/22/17 05:59 05:59 05:59 Intake Total 2860 1450 Output Total 1500 1750 500 Balance 1360 -300 -500 - Pending Discharge Pending Discharge Within 24 Hours: No Pending Discharge Within 48 Hours: No Physical Exam - Physical Exam General Appearance: no apparent distress Respiratory: lungs clear, decreased breath sounds Cardiac/Chest: regular rate, rhythm, tachycardia Abdomen: non-tender, soft Extremities: normal inspection Neuro/Psych: alert, normal mood/affect, oriented x 3 ICD10 Worksheet Patient Problems: Problems Problem Status Onset Boerhaave syndrome Acute Lactic acid acidosis Acute Respiratory distress Acute Acute infarction of spinal cord Acute Gastrointestinal hemorrhage Acute *This report may have been compiled using a voice recognition system, and might contain typographical errors and blanks.* Michoacano Godinez MD 10/21/1729 <Electronically signed by Michoacano Godinez MD> 6 T: AMMON 10/21/17826 CC:
--- NOTE | 2017-10-22 16:19 | PCMIDPN ---
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 C. albicans showing susceptibility to fluconazole. WBC continues to trend down. Blood cultures were negative. --continue Unasyn and fluconazole, will need prolonged therapy, but may not necessary need to be IV for entire course --continue to monitor cultures --check LFTs in AM --chest tube management per surgery --change IV Fluconazole to PO, on soft diet. Meds Unasyn 3gm IV q6h, #9 Fluconazole 400mg daily #11 Subjective: cheerful report pain under control Objective: Vital Signs Temp Pulse Resp BP Pulse Ox 36.8 C 105 H 14 148/96 H 92 10/22/17 08:00 10/22/17 08:00 10/22/17 08:00 10/22/17 08:00 10/22/17 08:00 Microbiology 10/18/17 10:40 Gram Stain - Final Other - Tissue Laboratory Results 10/22/17 05:50 10/19/17 05:38 10/21/17 10/22/17 10/23/17 05:59 05:59 05:59 Intake Total 1450 500 Output Total 1750 1000 700 Balance -300 -500 -700 Exam Gen: thin nontoxic NAD HEENT: very poor dentition CV: tachy RR Chest: decreased BS B bases occas crackle mid L lung field, R CT with straw colored cloudy fluid; L CT with serosang fluid; R posterior incision c/d/I, kenny in place Abd: soft NT Ext : no edema Skin: no rash RUE PICC c/d/i ICD10 Worksheet Patient Problems: Problems Problem Status Onset Boerhaave syndrome Acute Lactic acid acidosis Acute Respiratory distress Acute Acute infarction of spinal cord Acute Gastrointestinal hemorrhage Acute
[2017-10-23] MEDS: AMPICILLIN/SULBACTAM 3 GM in NS 100 ML IV SCH ×4 (06:02→23:50)
[2017-10-23 07:08] LABS: PLATELET COUNT 794 10^3/uL (150-400)
[2017-10-23] MEDS: PANTOPRAZOLE SODIUM 40 MG VIAL IVP SCH ×2 (07:34→21:12)
[2017-10-23] MEDS: FLUCONAZOLE 100 MG TAB PO SCH (07:41)
[2017-10-23] MEDS: ENOXAPARIN 40 MG/0.4 ML SYR SC SCH (07:42)
[2017-10-23] MEDS: CHLORHEXIDINE GLUCONATE 15 ML UDL PO SCH ×2 (07:42→21:12)
--- NOTE | 2017-10-23 08:50 | PCMIDPN ---
Assessment/Plan: 1.Perforation of distal esophagus with mediastinitis/bilateral empyemas status post washout and bilateral thoracotomies: Continue Unasyn and oral fluconazole as is. No new recommendations at this point in time. Will need antibiotics for quite some time. Safety labs on present antibiotics look fine. 10/23/17 08:51 Subjective: Not in the best of moods. Frustrated about being hospitalized. Denies nausea, vomiting or diarrhea. Complaining of pain in his chest related to the chest tubes. Objective: Unasyn 3 g IV q.6 hours day 10 Fluconazole 400 mg p.o. Day 12 No fevers Vital Signs Temp Pulse Resp BP Pulse Ox 36.8 C 105 H 16 143/93 H 93 10/23/17 07:23 10/23/17 07:23 10/23/17 07:23 10/23/17 07:23 10/23/17 07:23 Microbiology 10/18/17 10:40 Gram Stain - Final Other - Tissue Laboratory Results 10/23/17 06:00 10/23/17 06:00 10/22/17 10/23/17 10/24/17 05:59 05:59 05:59 Intake Total 500 2436 Output Total 1000 3075 400 Balance -500 -479 -400 No new microbiology - Physical Exam General Appearance: no apparent distress, cachetic EENT: pharynx normal, No thrush Respiratory: other (Chest tubes in place bilaterally. Bilateral thoracotomy incisions with kenny in place, incisions are clean and dry with no erythema or discharge. Diminished breath sounds at the bases otherwise clear upper modi.) Cardiac/Chest: regular rate, rhythm, tachycardia Extremities: other (PICC line right upper extremity looks fine) Abdomen: non-tender, soft Skin: No rash ICD10 Worksheet Patient Problems: Problems Problem Status Onset Boerhaave syndrome Acute Lactic acid acidosis Acute Respiratory distress Acute Acute infarction of spinal cord Acute Gastrointestinal hemorrhage Acute
--- NOTE | 2017-10-23 11:20 | SOAPPROG ---
SOAP Progress Note Assessment/Plan: Assessment:s/p repair distal esophogeal perforation with debridement of mediastinitis- mixed oral tico and tiffanie on Zosyn/Fluconazole s/p left thoractomy/decortication-GS + yeast/C. albicans on culture moderate blood loss anemia Hgb this AM 7.3 left thoracotomy incisional hematoma Plan: observe with ice/hold anticoagulants for now Continue IV Unasyn/Fluconazole Continue Soft diet (low fiber) for now. Anticipate CT removal when output <100ml/day and no leukocytosis 10/12/17 07:24 10/13/17 06:10 10/14/17 07:51 10/15/17 07:53 10/16/17 07:36 10/17/17 16:15 10/18/17 09:00 10/19/17 06:49 10/20/17 06:42 10/22/17 14:43 10/23/17 11:19 Subjective: resting comfortably, noticed some leakage of blood from his incision/RN reports swelling not previously noted Objective: Vital Signs Temp Pulse Resp BP Pulse Ox 36.8 C 105 H 16 143/93 H 93 10/23/17 07:23 10/23/17 07:23 10/23/17 07:23 10/23/17 07:23 10/23/17 07:23 Microbiology 10/18/17 10:40 Gram Stain - Final Other - Tissue Laboratory Results 10/23/17 06:00 10/23/17 06:00 10/22/17 10/23/17 10/24/17 05:59 05:59 05:59 Intake Total 500 2436 Output Total 1000 3075 400 Balance -500 -639 -400 - Pending Discharge Pending Discharge Within 24 Hours: No Pending Discharge Within 48 Hours: No Physical Exam - Physical Exam General Appearance: no apparent distress Respiratory: lungs clear, decreased breath sounds, other (left lateral chest wall hematoma extending mostly above the thoracotomy incision) Cardiac/Chest: regular rate, rhythm Abdomen: non-tender, soft ICD10 Worksheet Patient Problems: Problems Problem Status Onset Boerhaave syndrome Acute Lactic acid acidosis Acute Respiratory distress Acute Acute infarction of spinal cord Acute Gastrointestinal hemorrhage Acute
[2017-10-24] MEDS: AMPICILLIN/SULBACTAM 3 GM in NS 100 ML IV SCH ×4 (05:22→23:35)
[2017-10-24 05:46] LABS: PLATELET COUNT 798 10^3/uL (150-400)
--- NOTE | 2017-10-24 08:17 | SOAPPROG ---
SOAP Progress Note Assessment/Plan: Assessment:s/p repair distal esophogeal perforation with debridement of mediastinitis- mixed oral tico and tiffanie on Zosyn/Fluconazole s/p left thoractomy/decortication-GS + yeast/C. albicans on culture moderate blood loss anemia Hgb this AM 7.3 left thoracotomy incisional hematoma Plan: to OR for evacuation of hematoma. I discussed the procedure with Haroon and informed consent was obtained Continue IV Unasyn/Fluconazole Continue Soft diet (low fiber) for now. Anticipate CT removal when output <100ml/day and no leukocytosis 10/12/17 07:24 10/13/17 06:10 10/14/17 07:51 10/15/17 07:53 10/16/17 07:36 10/17/17 16:15 10/18/17 09:00 10/19/17 06:49 10/20/17 06:42 10/22/17 14:43 10/23/17 11:19 10/24/17 08:15 Subjective: resting comfortably Objective: Vital Signs Temp Pulse Resp BP Pulse Ox 36.9 C 101 H 18 110/87 H 92 10/24/17 07:39 10/24/17 07:39 10/24/17 07:39 10/24/17 07:39 10/24/17 07:39 Microbiology 10/18/17 10:40 Gram Stain - Final Other - Tissue Laboratory Results 10/24/17 05:25 10/23/17 06:00 10/23/17 10/24/17 10/25/17 05:59 05:59 05:59 Intake Total 2436 Output Total 3075 2100 Balance -639 -2100 - Pending Discharge Pending Discharge Within 24 Hours: No Pending Discharge Within 48 Hours: No Physical Exam - Physical Exam General Appearance: no apparent distress Respiratory: lungs clear, decreased breath sounds Cardiac/Chest: normal peripheral pulses, regular rate, rhythm, other (CT output serous/left chest wall hematoma unchanged-tense) Abdomen: non-tender, soft ICD10 Worksheet Patient Problems: Problems Problem Status Onset Boerhaave syndrome Acute Lactic acid acidosis Acute Respiratory distress Acute Acute infarction of spinal cord Acute Gastrointestinal hemorrhage Acute
[2017-10-24] MEDS ORDERED: LR 1,000 ML IV ONE (08:19)
--- NOTE | 2017-10-24 08:34 | PDANEPAE ---
ANE History of Present Illness s/p thoracotomy, here for I+D chestwall ANE Past Medical History - Cardiovascular History Hx Hypertension: Yes Hx Arrhythmias: No Hx Chest Pain: No Hx Coronary Artery / Peripheral Vascular Disease: Yes Hx CHF / Valvular Disease: No Hx Palpitations: No Cardiovascular History Comment: SD, s/p stents 2010 - Pulmonary History Hx COPD: Yes Hx Asthma/Reactive Airway Disease: Yes Hx Recent Upper Respiratory Infection: No Hx Oxygen in Use at Home: No Hx Sleep Apnea: No Sleep Apnea Screening Result - Last Documented: Negative Pulmonary History Comment: Active smoker - Neurologic History Hx Cerebrovascular Accident: Yes Neurologic History Comment: 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 - Endocrine History Hx Diabetes: No Hypothyroid: No Hyperthyroid: No Obesity: no - Renal History Hx Renal Disorders: No - Liver History Hx Hepatic Disorders: No - Neurological & Psychiatric Hx Hx Neurological and Psychiatric Disorders: No - Cancer History Hx Cancer: No - GI History GERD: moderate Hx Gastrointestinal Disorders: Yes Gastrointestinal History Comment: Esophageal rupture surgically repaired on 06/29 - Other Health History Other Health History: Anemia - Chronic Pain History Chronic Pain: No ANE Review of Systems Review of Systems: ANE Patient History - Allergies Allergies/Adverse Reactions: No Known Allergies Allergy (Verified 12/06/16 09:14) - Home Medications Home Medications: 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] 150 mg PO DAILY PRN 10/12/17 [Last Taken Unknown] - NPO status NPO Status: no food or drink >8 hours NPO Since - Liquids (Date): 10/24/17 NPO Since - Liquids (Time): 00:00 NPO Since - Solids (Date): 10/18/17 NPO Since - Solids (Time): 00:00 - Anes Hx Anes Hx: no prior problems - Smoking Hx Smoking Status: Heavy smoker - Alcohol Use Alcohol Use: None - Family Anes Hx Family Anes Hx: none ANE Labs/Vital Signs - Labs Result Diagrams: 10/24/17 05:25 10/23/17 06:00 - Vital Signs Blood Pressure: 110/87 Heart Rate: 101 Respiratory Rate: 18 O2 Sat (%): 92 Height: 167.64 cm Weight: 66.2 kg ANE Physical Exam - Airway Neck exam: FROM Mallampati Score: Class 1 Mouth exam: normal dental/mouth exam - Pulmonary Pulmonary: no respiratory distress, clear to auscultation - Cardiovascular Cardiovascular: regular rate and rhythym, no murmur, rub, or gallop - ASA Status ASA Status: III ANE Anesthesia Plan Anesthesia Plan: general endotracheal anesthesia
[2017-10-24] MEDS ORDERED: MIDAZOLAM 2 MG/2 ML VIAL IVP ONE (08:36)
[2017-10-24] MEDS ORDERED: fentaNYL 100 MCG/2 ML INJ ONE (08:49)
[2017-10-24] MEDS ORDERED: PROPOFOL 200 MG/20 ML VIAL ONE (08:50)
[2017-10-24] MEDS ORDERED: BUPIVACAINE 0.25% 30 ML SDV ONE (09:01)
[2017-10-24] MEDS ORDERED: ONDANSETRON 4 MG/2 ML VIAL ONE (09:47)
[2017-10-24] MEDS ORDERED: DEXAMETHASONE 4 MG/ML VIAL ONE (09:47)
[2017-10-24] MEDS ORDERED: SUGAMMADEX SODIUM 200 MG/2 ML VIAL IVP ONE (09:47)
[2017-10-24] MEDS ORDERED: HYDROCODONE/APAP 5/325 TAB PO PRN (10:08)
[2017-10-24] MEDS ORDERED: ACETAMINOPHEN 500 MG TAB PO PRN (10:10)
[2017-10-24] MEDS ORDERED: NALOXONE HCL 0.4 MG/ML INJ IVP PRN (10:10)
[2017-10-24] MEDS ORDERED: PROMETHAZINE HCL 25 MG/ML INJ IVP PRN (10:10)
[2017-10-24] MEDS ORDERED: fentaNYL 100 MCG/2 ML INJ IVP PRN (10:10)
[2017-10-24] MEDS ORDERED: ONDANSETRON 4 MG/2 ML VIAL IVP PRN (10:10)
--- NOTE | 2017-10-24 10:12 | POSTANESTH ---
Post Anesthetic Evaluation Cardiovascular Status: Normal, Stable, Similar to Pre-Op Cond Respiratory Status: Normal, Stable, Similar to Pre-op Cond. Level of Consciousness/Mental Status: Can Participate in Eval, Alert and Oriented Pain Control: Adequate, Prn Tx Ordered Nausea/Vomiting Control: Adequate, Prn Tx Ordered Complications Possibly Related to Anesthesia: None Noted
--- NOTE | 2017-10-24 10:12 | PCMIDPN ---
Assessment/Plan: 1.Perforation of distal esophagus with mediastinitis/bilateral empyemas status post washout and bilateral thoracotomies: Continue Unasyn and oral fluconazole as is. No new recommendations at this point in time. Will need antibiotics for quite some time. 10/24/17 10:12 Subjective: Patient is down in the operating room having a hematoma drained from pleural space. No Overnight events. Objective: Unasyn 3 g IV q.6 hours day 11 Fluconazole 400 mg p.o. Daily day 13 Afebrile Vital Signs Temp Pulse Resp BP Pulse Ox 36.9 C 101 H 18 110/87 H 92 10/24/17 08:39 10/24/17 08:39 10/24/17 08:39 10/24/17 08:39 10/24/17 08:39 Microbiology 10/18/17 10:40 Gram Stain - Final Other - Tissue Laboratory Results 10/24/17 05:25 10/23/17 06:00 10/23/17 10/24/17 10/25/17 05:59 05:59 05:59 Intake Total 8255 Output Total 6315 5260 138 Balance -487 -2100 -700 No new microbiology ICD10 Worksheet Patient Problems: Problems Problem Status Onset Boerhaave syndrome Acute Lactic acid acidosis Acute Respiratory distress Acute Acute infarction of spinal cord Acute Gastrointestinal hemorrhage Acute
--- NOTE | 2017-10-24 10:15 | POSTOPPROG ---
Post Op Note Date of Operation: 10/24/17 (#[id number]) Surgeon: Michoacano Godinez (, FACS) Anesthesiologist: Bryan Waller MD Anesthesia: GET(General Endotracheal) Pre-op Diagnosis: left chest wall hematoma Post-op Diagnosis: same Procedure: evacuation of hematoma Findings: no active bleeding/250 ml clot Inf/Abcess present in the surg proc area at time of surgery?: No
[2017-10-24] MEDS: FLUCONAZOLE 100 MG TAB PO SCH (11:02)
[2017-10-24] MEDS: PANTOPRAZOLE SODIUM 40 MG VIAL IVP SCH ×2 (11:03→21:27)
[2017-10-24] MEDS: CHLORHEXIDINE GLUCONATE 15 ML UDL PO SCH ×2 (11:04→21:27)
--- NOTE | 2017-10-24 11:04 | GOP ---
[f rep st] OPERATIVE REPORT DATE OF OPERATION: 10/24/2017 SURGEON: Michoacano Godinez MD, FACS ANESTHESIA: General endotracheal. ANESTHESIOLOGIST: Bryan Waller MD. PREOPERATIVE DIAGNOSIS: 1. Status post bilateral thoracotomies for esophageal perforation and empyema. 2. Postoperative hematoma, left chest wall. POSTOPERATIVE DIAGNOSIS: 1. Status post bilateral thoracotomies for esophageal perforation and empyema. 2. Postoperative hematoma, left chest wall. PROCEDURE PERFORMED: Evacuation of left chest wall hematoma. FINDINGS: Approximately 250 mL clot evacuated from the left thoracotomy incision with no active bleeding noted. ESTIMATED BLOOD LOSS: Minimal, but 250 mL of clot evacuated. DESCRIPTION OF PROCEDURE: After informed consent was obtained, the patient was brought to the operating room and placed under general anesthesia. He was positioned in left lateral decubitus position. Left chest was prepped and draped in the usual fashion. Before proceeding, a time-out and identification of the patient was performed. The kenny from the prior thoracotomy incision were removed and the subcutaneous sutures were removed. The hematoma was located posteriorly near the latissimus border and was evacuated. There was no active bleeding. The wound was irrigated. A culture of the clot was submitted for aerobes and anaerobes. The posterior aspect of the serrated muscular closure was reapproximated with interrupted 2-0 Vicryl sutures. Subcutaneous tissues were approximated with 2-0 Vicryl suture. Skin was closed with kenny. The anterior 28-German chest tube was removed and the right angle 36-German chest tube was left in place. This was re-dressed. The patient was then returned to supine position, extubated. The right chest tube was re-dressed and new Pleur- evac attached to both. Patient was returned to the recovery room in satisfactory condition. Needle, sponge, and instrument count correct. /[id number]/MODL MTDD
--- NOTE | 2017-10-24 16:40 | ASMTCMCOM ---
CM Note CM Note Notes: Pt went back to OR to have hematoma drained from pleural space, dc needs unclear. DC Plan: TBD/Homecare ([facility]) Date Signed: 10/24/2017 04:39 PM Electronically Signed By:Zoe Vidales RN
[2017-10-24] MEDS ORDERED: ALTEPLASE 2 MG VIAL IVP ONE (17:15)
[2017-10-25] MEDS: AMPICILLIN/SULBACTAM 3 GM in NS 100 ML IV SCH ×4 (05:26→23:05)
--- NOTE | 2017-10-25 09:58 | SOAPPROG ---
SOAP Progress Note Assessment/Plan: Assessment:s/p repair distal esophogeal perforation with debridement of mediastinitis- mixed oral tico and tiffanie on Zosyn/Fluconazole s/p left thoractomy/decortication-GS + yeast/C. albicans on culture moderate blood loss anemia Hgb this AM 7.3 left thoracotomy incisional hematoma Plan: to OR for evacuation of hematoma. I discussed the procedure with Haroon and informed consent was obtained Continue IV Unasyn/Fluconazole Continue Soft diet (low fiber) for now. Anticipate CT removal when output <100ml/day and no leukocytosis 10/12/17 07:24 10/13/17 06:10 10/14/17 07:51 10/15/17 07:53 10/16/17 07:36 10/17/17 16:15 10/18/17 09:00 10/19/17 06:49 10/20/17 06:42 10/22/17 14:43 10/23/17 11:19 10/24/17 08:15 Subjective: moderate pain/no BM Objective: Vital Signs Temp Pulse Resp BP Pulse Ox 36.9 C 101 H 18 151/90 H 92 10/25/17 08:00 10/25/17 08:00 10/25/17 08:00 10/25/17 08:00 10/25/17 08:00 Microbiology 10/24/17 09:31 Gram Stain - Final Chest - Eswab 10/18/17 10:40 Gram Stain - Final Other - Tissue Laboratory Results 10/24/17 05:25 10/23/17 06:00 10/24/17 10/25/17 10/26/17 05:59 05:59 05:59 Intake Total 450 Output Total 2100 1410 400 Balance -2100 -960 -400 Physical Exam - Physical Exam Respiratory: lungs clear Cardiac/Chest: regular rate, rhythm Skin: normal color Lymphatic: no adenopathy Neuro/Psych: alert, normal mood/affect ICD10 Worksheet Patient Problems: Problems Problem Status Onset Boerhaave syndrome Acute Lactic acid acidosis Acute Respiratory distress Acute Acute infarction of spinal cord Acute Gastrointestinal hemorrhage Acute
[2017-10-25] MEDS: FLUCONAZOLE 100 MG TAB PO SCH (10:20)
[2017-10-25] MEDS: OXYCODONE/APAP 5/325 TAB PO PRN ×3 (10:22→21:04)
[2017-10-25] MEDS: PANTOPRAZOLE SODIUM 40 MG VIAL IVP SCH ×2 (10:22→20:22)
--- NOTE | 2017-10-25 11:33 | PCMIDPN ---
Assessment/Plan: 1.Perforation of distal esophagus with mediastinitis/bilateral empyemas status post washout and bilateral thoracotomies: Patient is now status post evacuation of an incisional hematoma along the left chest *wall*. Continue Unasyn and fluconazole. Chest tubes to be removed tomorrow. 10/25/17 11:34 Subjective: Status post drainage of left chest wall incisional hematoma. Patient in good spirits. Minimal pain. Smiling. Not really eating much. Objective: Unasyn 3 g IV q.6 hours day 12 Fluconazole 4 mg p.o. Daily day 14 Afebrile Vital Signs Temp Pulse Resp BP Pulse Ox 36.9 C 101 H 18 151/90 H 92 10/25/17 08:00 10/25/17 08:00 10/25/17 08:00 10/25/17 08:00 10/25/17 08:00 Microbiology 10/24/17 09:31 Gram Stain - Final Chest - Eswab 10/18/17 10:40 Gram Stain - Final Other - Tissue Laboratory Results 10/24/17 05:25 10/23/17 06:00 10/24/17 10/25/17 10/26/17 05:59 05:59 05:59 Intake Total 450 Output Total 2100 1410 400 Balance -2100 -960 -400 No new microbiology Gram stain culture from hematoma yesterday looks bland - Physical Exam General Appearance: no apparent distress, cachetic EENT: poor dentition, No thrush Respiratory: other (Chest tubes in place bilaterally. Hematoma visible left thoracotomy incision site.) Extremities: other (PICC line right upper extremity looks fine) Abdomen: non-tender, soft ICD10 Worksheet Patient Problems: Problems Problem Status Onset Boerhaave syndrome Acute Lactic acid acidosis Acute Respiratory distress Acute Acute infarction of spinal cord Acute Gastrointestinal hemorrhage Acute
[2017-10-25] MEDS: CHLORHEXIDINE GLUCONATE 15 ML UDL PO SCH ×2 (11:56→20:21)
[2017-10-26] MEDS: OXYCODONE/APAP 5/325 TAB PO PRN ×4 (02:53→21:38)
[2017-10-26] MEDS: AMPICILLIN/SULBACTAM 3 GM in NS 100 ML IV SCH ×4 (06:07→23:18)
[2017-10-26 06:24] LABS: PLATELET COUNT 892 10^3/uL (150-400)
--- NOTE | 2017-10-26 08:05 | SOAPPROG ---
SOAP Progress Note Assessment/Plan: Assessment:s/p repair distal esophogeal perforation with debridement of mediastinitis- mixed oral tico and tiffanie on Zosyn/Fluconazole s/p left thoractomy/decortication-GS + yeast/C. albicans on culture s/p evacuation left chest wall hematoma Day #14 IV Zosyn>Unasyn, IV>oral Diflucan afebrile with mild leukocytosis minimal CT output Plan: DC chest tubes today continue Abx per ID 10/12/17 07:24 10/13/17 06:10 10/14/17 07:51 10/15/17 07:53 10/16/17 07:36 10/17/17 16:15 10/18/17 09:00 10/19/17 06:49 10/20/17 06:42 10/22/17 14:43 10/23/17 11:19 10/24/17 08:15 10/26/17 08:03 Subjective: resting comfortably/tolerated diet Objective: Vital Signs Temp Pulse Resp BP Pulse Ox 36.6 C 93 14 115/74 93 10/25/17 22:58 10/25/17 22:58 10/25/17 22:58 10/25/17 22:58 10/25/17 22:58 Microbiology 10/24/17 09:31 Gram Stain - Final Chest - Eswab Laboratory Results 10/26/17 06:10 10/23/17 06:00 10/25/17 10/26/17 10/27/17 05:59 05:59 05:59 Intake Total 450 250 Output Total 1410 954 Balance -960 -704 - Pending Discharge Pending Discharge Within 48 Hours: Yes Pending Discharge Date: 10/28/17 Pending Discharge Time: 11:00 Physical Exam - Physical Exam General Appearance: alert, no apparent distress Respiratory: lungs clear, decreased breath sounds (left base), other (CT output minimal serous bilaterally) Cardiac/Chest: regular rate, rhythm Abdomen: non-tender, soft Male Genitalia: deferred Rectal: deferred Skin: warm/dry Neuro/Psych: alert, normal mood/affect ICD10 Worksheet Patient Problems: Problems Problem Status Onset Boerhaave syndrome Acute Lactic acid acidosis Acute Respiratory distress Acute Acute infarction of spinal cord Acute Gastrointestinal hemorrhage Acute
[2017-10-26] MEDS: FLUCONAZOLE 100 MG TAB PO SCH (08:28)
[2017-10-26] MEDS: PANTOPRAZOLE SODIUM 40 MG VIAL IVP SCH (08:30)
[2017-10-26] MEDS: CHLORHEXIDINE GLUCONATE 15 ML UDL PO SCH (08:30)
--- NOTE | 2017-10-26 13:24 | PCMIDPN ---
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 Chest tubes out. --plan to dc on PO Augmentin 875mg PO BID + fluconazole 400mg PO daily, please Rx 2 weeks supply and I will refill as outpatient, needs total 4-6 weeks total therapy --follow up with me 11/04 at 11:30 Meds Unasyn 3gm IV q6h, #11 Fluconazole 400mg daily #13 Subjective: patient excited about chest tubes getting pulled today Objective: Vital Signs Temp Pulse Resp BP Pulse Ox 36.9 C 96 14 122/91 H 97 10/26/17 08:00 10/26/17 08:00 10/26/17 08:00 10/26/17 08:00 10/26/17 08:00 Microbiology 10/24/17 09:31 Gram Stain - Final Chest - Eswab Laboratory Results 10/26/17 06:10 10/23/17 06:00 10/25/17 10/26/17 10/27/17 05:59 05:59 05:59 Intake Total 450 250 Output Total 1410 954 900 Balance -960 -552 -900 - Physical Exam General Appearance: alert, no apparent distress EENT: poor dentition Respiratory: crackles (R mid lung field), No accessory muscle use Neuro/Psych: alert, normal mood/affect, oriented x 3 - Time Spent With Patient Time Spent with Patient: greater than 25 minutes (care coordinated with Dr. Godinez ) Time Spent with Patient: Greater than 25 minutes spent on this patients care, greater than 50% of time spent counseling, educating, and coordinating care regarding the above mentioned plan. ICD10 Worksheet Patient Problems: Problems Problem Status Onset Boerhaave syndrome Acute Lactic acid acidosis Acute Respiratory distress Acute Acute infarction of spinal cord Acute Gastrointestinal hemorrhage Acute
--- NOTE | 2017-10-26 17:22 | ASMTCMCOM ---
CM Note CM Note Notes: CM chart review, discussed with MARY ELLEN Allan. Patient discharge likely 10/27-10/28 on oral antibiotics. Chest tubes removed today. Possible need for HH RN to check dressing. Discharge Plan: TBD/HH([facility]) Date Signed: 10/26/2017 05:21 PM Electronically Signed By:Dacia Acosta
[2017-10-26] MEDS: PANTOPRAZOLE SODIUM 40 MG TAB PO SCH (20:18)
[2017-10-27] MEDS: OXYCODONE/APAP 5/325 TAB PO PRN ×5 (06:04→23:36)
[2017-10-27] MEDS: AMPICILLIN/SULBACTAM 3 GM in NS 100 ML IV SCH (06:04)
--- NOTE | 2017-10-27 06:16 | SOAPPROG ---
SOAP Progress Note Assessment/Plan: Assessment: doing well post chest tube removal/able to transfer independently from bed to wheelchair plans on returning home after discharge will request [facility] visit to assess any needs at home FU my office next Friday for staple removal Plan: check wbc/transition to oral antibiotics anticipate discharge tomorrow 10/12/17 07:24 10/13/17 06:10 10/14/17 07:51 10/15/17 07:53 10/16/17 07:36 10/17/17 16:15 10/18/17 09:00 10/19/17 06:49 10/20/17 06:42 10/22/17 14:43 10/23/17 11:19 10/24/17 08:15 10/26/17 08:03 10/27/17 06:17 Subjective: resting comfortably Objective: Vital Signs Temp Pulse Resp BP Pulse Ox 36.9 C 85 16 125/74 H 93 10/26/17 23:33 10/26/17 23:33 10/26/17 23:33 10/26/17 23:33 10/26/17 23:33 Microbiology 10/24/17 09:31 Gram Stain - Final Chest - Eswab Laboratory Results 10/26/17 06:10 10/23/17 06:00 10/26/17 10/27/17 10/28/17 05:59 05:59 05:59 Intake Total 250 440 Output Total [address] [facility] -[phone] - Pending Discharge Pending Discharge Within 24 Hours: Yes Pending Discharge Date: 10/28/17 Pending Discharge Time: 11:00 Physical Exam - Physical Exam General Appearance: no apparent distress Respiratory: normal breath sounds, decreased breath sounds Cardiac/Chest: regular rate, rhythm Abdomen: non-tender, soft Male Genitalia: deferred Rectal: deferred Back: Normal inspection Skin: warm/dry, pallor Neuro/Psych: alert, normal mood/affect, oriented x 3 ICD10 Worksheet Patient Problems: Problems Problem Status Onset Boerhaave syndrome Acute Lactic acid acidosis Acute Respiratory distress Acute Acute infarction of spinal cord Acute Gastrointestinal hemorrhage Acute
[2017-10-27 06:50] LABS: PLATELET COUNT 761 10^3/uL (150-400)
[2017-10-27] MEDS: PANTOPRAZOLE SODIUM 40 MG TAB PO SCH ×2 (09:33→20:56)
[2017-10-27] MEDS: FLUCONAZOLE 100 MG TAB PO SCH (09:33)
[2017-10-27] MEDS: AMOXICILLIN/CLAVULANATE POT 875/125 MG TAB PO SCH ×2 (09:33→20:56)
[2017-10-28] MEDS: OXYCODONE/APAP 5/325 TAB PO PRN ×2 (06:21→11:31)
--- NOTE | 2017-10-28 07:50 | PDIAF ---
- Diagnosis Code Status: Full Code - Medication Management Discharge Medications: Medications to Continue on Transfer Acetaminophen [Tylenol 325mg (*)] 325 - 650 mg PO Q4HRS PRN tab 10/28/17 [Last Taken Unknown] Amoxicillin/Clavulanate Pot [Augmentin 875 MG TAB (*)] 875 mg PO BID #30 tab [Last Taken Unknown] Fluconazole [Diflucan (*)] 400 mg PO DAILY #14 tab 10/28/17 [Last Taken Unknown] Pantoprazole Sodium [Protonix 40mg (*)] 40 mg PO BID #60 tab 10/28/17 [Last Taken Unknown] oxyCODONE/APAP 5/325 [Percocet 5/325 (*)] 1 tab PO Q4HRS PRN #30 tab 10/28/17 [ Last Taken Unknown] Discharge Medications: Refer to the Discharge Home Medication list for PRN reason. PICC Care - Routine: N/A - Orders Services needed: Home Care, Registered Nurse, Physical Therapy Home Care Face to Face: I certify that this patient was under my care and that I had the required [id number] encounter meeting the encounter requirements on the discharge day. My findings support the fact that the patient is homebound as defined in Home Care Face to Face Continued: CMS Chapter 7 Medicare Benefits Manual 30.1.1 , The condition of the patient is such that there exists a normal inability to leave home and consequently, leaving home would require a considerable and taxing effort. Diet Recommendation: no restrictions on diet, other (avoid caffeine) Diet Texture: Regular Texture Diet [place]: Yes (patient self catheterizes 5x/day) Date to Remove Sutures/[place]: 11/03/17 (Dr. Godinez' office) Activity/Weight Bearing Restrictions: as tolerated/patient transfers to wheelchair independently Additional Instructions: May remove chest tube site dressings in 2 days and leave open to air FU Dr. Godinez FridayNovember 03 for staple removal FU Dr. Puckett [facility] November 04 at 11:30 AM may shower activity as tolerated - Labs/Radiology CBC w/diff Date: 10/30/17 - Follow Up Care Current Providers and Referrals: Ailyn Maddox DO [Primary Care Provider] - As per Instructions Christina Puckett MD [Medical Doctor] - 11/04/17 11:30 am Michoacano Godinez MD [Medical Doctor] -
[2017-10-28] MEDS: FLUCONAZOLE 100 MG TAB PO SCH (07:52)
[2017-10-28] MEDS: PANTOPRAZOLE SODIUM 40 MG TAB PO SCH (07:52)
[2017-10-28] MEDS: AMOXICILLIN/CLAVULANATE POT 875/125 MG TAB PO SCH (07:52)
[2017-10-28 08:02] VITALS: BP 124/74
--- NOTE | 2017-10-28 08:04 | PDDCSUM ---
Discharge Summary Discharge Summary: #[id number] OSMAN Godinez MD, FACS
--- NOTE | 2017-10-28 08:29 | GDS ---
[f rep st] DISCHARGE SUMMARY DISCHARGE DIAGNOSES: 1. Distal esophageal perforation secondary to esophageal ulcer. 2. Mediastinitis. 3. Postoperative loculated left empyema. 4. Postoperative left chest wall hematoma. 5. History of spinal cord infarct with partial paraplegia. 6. History of testicular carcinoma in 2005. 7. 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 8. History of erosive esophogitis 9. Tobacco use PROCEDURES PERFORMED: 1. 10/11/2017, right thoracotomy with repair of distal esophageal perforation, intercostal muscular pedicle flap for vascularized coverage. 2. Debridement of mediastinitis and drainage. 3. 10/18/2017, left thoracotomy with decortication for empyema. 4. 10/24/2017, left thoracotomy wound exploration and evacuation of hematoma. CONSULTATIONS DURING THIS HOSPITAL COURSE: Dr. Huseyin Garcia, licensed surveyor. Dr. Christina Puckett, Infectious Diseases. HOSPITAL COURSE: For details of admission history and physical, please see dictated summary. Briefly, the patient is a 57-year-old male, who presented with tachycardia, dyspnea, and signs of sepsis. He developed chest pain approximately 20 hours prior to admission and was found on imaging to have free air in the mediastinum consistent with an esophageal perforation. In 2014, he had been hospitalized and had endoscopy performed, which showed erosive esophagitis and was advised to take proton pump inhibitors indefinitely. However, he was unable to continue this regimen and progressed to the point of perforation after some vomiting related to chronic nausea. After receiving intravenous Zosyn, he was brought to the operating room and underwent right thoracotomy. Preoperative Gastrografin swallow in the ED showed contrast extravasation from the distal third of the esophagus into the right chest. At the time of surgery, he was found to have a punched-out 1 cm ulcer in the anterior esophageal wall with signs of chronicity. The ulcer was closed primarily and an intercostal muscle flap fashioned from the 7th intercostal space and wrapped around the repair. Both sides of the chest were drained with chest tubes. Postoperatively, the patient pulled out his own NG tube within 12 hours of surgery. This was left out. He was kept n.p.o. for 5 days. His sepsis resolved with aggressive intravenous fluid resuscitation and antibiotics. He stabilized hemodynamically within the first 24 hours. His venous lactate at time of admission was 8. On the 5th postoperative day, a Gastrografin swallow was performed and showed no evidence of leak. He was started on a clear liquid diet. His ileus resolved relatively quickly. He began to run low-grade fevers and had tiffanie and Prevotella growing from his mediastinal cultures. CT of the chest showed a loculated effusion on the left side. Aspiration attempts were unsuccessful, and he was brought to the operating room for a left decortication. This could not be performed via VATS because of prior pleural scarring from his diaphragm rupture and chest tube placement. Left thoracotomy was performed in the anterolateral position, and the lower lobe and remainder of the chest were decorticated and drained with 2 chest tubes, 1 right angle and 1 straight. Thereafter, the patient defervesced. He did have a hematoma develop in the chest on the left side that required operative evacuation on the , which he tolerated well. The patient 's white blood cell count returned to normal. He did have blood loss anemia related to his 1st surgery and required a unit of packed red blood cells, but no other transfusions were given. Dr. Puckett switched him from Zosyn to Unasyn and placed him on Diflucan after tiffanie was growing out of his mediastinal cultures. He was switched to oral Diflucan and oral Augmentin prior to discharge, which he tolerated well and remained afebrile. His chest tubes were removed 2 days prior to discharge, and he was advanced to a regular diet. Advised to abstain from tobacco use and drinking of coffee to which he agrees. CONDITION AT TIME OF DISCHARGE: Improved. DISCHARGE MEDICATIONS: Oxycodone 1 p.o. q.4 hours p.r.n. pain #30, no refills, Augmentin 875 mg p.o. twice daily #30, Diflucan 400 mg p.o. daily #14, pantoprazole 40 mg p.o. twice daily #60. DISCHARGE INSTRUCTIONS: The patient will follow up in my office on November 03 for staple removal, with Dr. Christina Puckett at the [facility] on November 04, and will call for followup appointment with his primary care physician, Dr. Ailyn Maddox DO. The patient will also require repeat endoscopy with Dr. Atkins in approximately 3 months to assess for healing of his distal erosive esophagitis. /[id number]/MODL MTDD
--- NOTE | 2017-10-28 10:25 | ASDISCHSUM ---
Discharge Information Plan Status:Home with Home Health Medically Cleared to Leave:10/28/2017 Discharge Date:10/28/2017 CM D/C Disposition: ADT D/C Disposition:HHSNOTBCH Projected Discharge Date:10/28/2017 11:00 AM Transportation at D/C: Discharge Delay Reason: Follow-Up Date:10/28/2017 11:00 AM Discharge Slot: Final Diagnosis: Placement Information Referral Type:*Home Health Care Services Referral ID:[id number] Provider Name:[facility] Address 1:[address] [place], [place] [address] Address 2: City:[place] Selection Factors: State:[place] Patient Contact Information Contact Name:BOBBY Relationship: Address: Home Phone: Work Phone: City: [place] Phone: [facility] Code: Email: Financial Information Financial Class:Medicaid Primary Plan Desc:[place] Primary Plan Number:[id number] Secondary Plan Desc: Secondary Plan Number: Assessment Information [facility] CM Progress Note CM Note CM Note Notes: Patient admitted very early this morning with back and chest pain and SOB. He was found to have bilateral pleural effusions, bilateral pneumothoraces, and bilateral PE. 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 He was taken directly to the OR for a thoracotomy, esophageal perf repair, intercostal flap, and left CT thoracostomy. He is intubated and sedated. We haven't been able to locate any contact information for friends/family. Per night RN, when patient was asked if there was anyone we could contact, he said "my doctor." I looked up past [facility] visits and couldn't find any contact info. When patient is able, we'll talk to him about his support system. Case Management will follow. Date Signed: 10/11/2017 02:36 PM Electronically Signed By:Jaz Purdy RN LACE LACE Length of stay for Answers: 14 days or more current admission Acuity / Level of Answers: Yes Care: Did the patient have an inpatient admission? Comorbidities - select Answers: Chronic pulmonary disease all that apply Coronary Artery Disease Previous myocardial infarction Other Notes: GERD; HTN # of Emergency department Answers: 1-2 visits in the last 6 months Score: 17 Date Signed: 10/28/2017 10:23 AM Electronically Signed By:LISSA North [facility] CM Progress Note CM Note CM Note Notes: PT recommending HC; OT=SNF; Patient still needs a cog eval RN reports that he is A & O x 2. He is W/C bound at home needs a SBA to transfer. Patient difficult to talk to given cog status and no family/friend support. Contact made to [facility] to see if they were involved in providing care at home for patient? [facility] not involved. Contacted [facility] for names of emergency contacts- [facility] said that no one is listed. Patient may need SNF Rehab on discharge and will need a ULTC-100. If patient is deemed not decisional a Guardian may need to be named? Date Signed: 10/14/2017 02:46 PM Electronically Signed By:Corina Lindsey LCSW [facility] CM Progress Note CM Note CM Note Notes: I went to speak with patient about discharge options. He feels that a 30 day rehab stay would be too much (per Medicaid, he'd need to stay for this long). 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 He said his house is disgusting. I explained that we couldn't release him to a situation like that. I explained that, were he able to get his house cleaned, we could possibly send him home with some supportive services. He's had [facility] home[facility] in the past. I also suggested that we begin the application for HCBS (home community based services) for unskilled care. This is through Medicaid, and initiation takes awhile, but we can start the process. After being agreeable, patient became agitated when I asked him to sign this paperwork. He requested that I leave it with him for him to review before signing. I left a copy and the original is with Case Management. Patient also said he could arrange for someone to clean his house, by tomorrow. We'll have to keep checking in with him and with his care team to see what the most reasonable d/c plan is given his seemingly uncertain living situation. 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 Date Signed: 10/16/2017 03:36 PM Electronically Signed By:Jaz Purdy RN [facility] Progress Note CM Note CM Note Notes: CM met with Pt. Pt continues to have ambivelence re signing consent to request unskilled services through Medicaid. He would like to keep things "private" as much as possible. He shares that he thinks he can benefit from several hours a month of unskilled services and is interested in [facility] agencies that provide this for a fee. Pt may be moved to PCU today. D/C Plan: TBD. CM will continue to follow. Date Signed: 10/17/2017 12:38 PM Electronically Signed By:Guerita Robles [facility] Progress Note CM Note CM Note Notes: CM spoke to MARY ELLEN Ennis regarding d/c POC. CM met w/ pt for dispo planning. Pt is agreeable to having HC at time of d/c. Pt reports that he had [facility] in the past and would like to use them again. Pt is interested in having HCBS. CM communicated this to Marni with [employer]. Marni will meet w/ pt and sign him uip for HCBS. CM to follow. Plan: [facility]; PT, OT Date Signed: 10/20/2017 04:13 PM Electronically Signed By:LISSA North [facility] Progress Note CM Note MER[facility]I Note Notes: Karyna from [facility] met w/ pt for HCBS services. Pt refused to sign. CM made a referral for pt to [facility]. [facility]. Pt will d/c with [facility] when medically stable to d/c. CM to follow. Plan: [facility]; PT, OT Date Signed: 10/21/2017 02:15 PM Electronically Signed By:LISSA North [facility] CM Progress Note CM Note CM Note Notes: CM spoke to Fernanda at [facility]. Fernanda reports that pts chest tubes will need to be pulled in order for them to accept pt, prior to d/c. Fernanda reports that they are unable to start care until 10/24/17. CM to follow. Plan: [facility], PT, OT Date Signed: 10/21/2017 04:18 PM Electronically Signed By:LISSA North [facility] CM Progress Note CM Note CM Note Notes: Pt went back to OR to have hematoma drained from pleural space, dc needs unclear. DC Plan: TBD/Homecare ([facility] ) Date Signed: 10/24/2017 04:39 PM Electronically Signed By:Zoe Vidales RN [facility] CM Progress Note CM Note CM Note Notes: CM chart review, discussed with MARY ELLEN Allan. Patient discharge likely 10/27-10/28 on oral antibiotics. Chest tubes removed today. Possible need for HH RN to check dressing. Discharge Plan: TBD/HH([facility]) Date Signed: 10/26/2017 05:21 PM Electronically Signed By:Dacia Acosta Case Management Discharge Plan Note Case Management Discharge Discharge Order Complete? Answers: Yes Patient to Obtain Answers: Independently Medications Transportation Arranged Answers: Bus Tokens EMTALA Complete Answers: No Case Management Transport Answers: No Form Complete Faxed Final Orders Answers: Yes Agency/Facility Transfer Answers: Yes Report Printed & Faxed to Receiving Agency Family Notified Answers: No Discharge Comments Notes: CM spoke to MARY ELLEN Browne regarding d/c POC. Pt is being discharged today. CM met w/ pt for dispo planning. Pt was resistant to having [facility] but is agreeable for them to follow up. provided pt w/ clothes from donations and a bus pass per his request. DC orders sent to [facility] and they are able to start care on . CM available for changes. Plan: [facility]; PTMARY ELLEN Date Signed: 10/28/2017 10:21 AM Electronically Signed By:LISSA North Intervention Information
== END 2017-10-28 12:15 | disposition home health service (06) | DRG 710 ==
LOC: F2N 10-11 08:04 → F3E 10-17 17:42
PROVIDERS: ADMIT Surgery; ATTEND Surgery
PROC: 02HV3DZ Insertion of Intraluminal Device into Superior Vena Cava, Percutaneous Approach (ICD-10-PCS; 2017-10-11)
PROC: 0DQ50ZZ Repair Esophagus, Open Approach (ICD-10-PCS; principal; 2017-10-11 04:30)
PROC: 0B9N00Z Drainage of Right Pleura with Drainage Device, Open Approach (ICD-10-PCS; principal; 2017-10-11 04:30)
PROC: 0B9P00Z Drainage of Left Pleura with Drainage Device, Open Approach (ICD-10-PCS; principal; 2017-10-11 04:30)
PROC: 30233N1 Transfusion of Nonautologous Red Blood Cells into Peripheral Vein, Percutaneous Approach (ICD-10-PCS; principal; 2017-10-11 04:30)
PROC: 02HV33Z Insertion of Infusion Device into Superior Vena Cava, Percutaneous Approach (ICD-10-PCS; 2017-10-14)
PROC: 0W9B3ZX Drainage of Left Pleural Cavity, Percutaneous Approach, Diagnostic (ICD-10-PCS; 2017-10-16)
PROC: 0B9L00Z Drainage of Left Lung with Drainage Device, Open Approach (ICD-10-PCS; 2017-10-18)
PROC: 0DN50ZZ Release Esophagus, Open Approach (ICD-10-PCS; 2017-10-18)
PROC: 0BNL0ZZ Release Left Lung, Open Approach (ICD-10-PCS; 2017-10-18)
PROC: 0WCC0ZZ Extirpation of Matter from Mediastinum, Open Approach (ICD-10-PCS; 2017-10-24)
DX: A41.9 Sepsis, unspecified organism (principal); R65.20 Severe sepsis without septic shock; J98.51 Mediastinitis; B37.89 Other sites of candidiasis; K22.3 Perforation of esophagus; K22.10 Ulcer of esophagus without bleeding; J96.00 Acute respiratory failure, unspecified whether with hypoxia or hypercapnia; J86.9 Pyothorax without fistula; D62 Acute posthemorrhagic anemia; K22.8 Other specified diseases of esophagus; Z53.32 Thoracoscopic surgical procedure converted to open procedure; M96.831 Postprocedural hemorrhage of a musculoskeletal structure following other procedure; K56.7 Ileus, unspecified; E87.6 Hypokalemia; G82.22 Paraplegia, incomplete; N31.9 Neuromuscular dysfunction of bladder, unspecified; I25.10 Atherosclerotic heart disease of native coronary artery without angina pectoris; G62.9 Polyneuropathy, unspecified; E78.5 Hyperlipidemia, unspecified; I10 Essential (primary) hypertension; Z85.47 Personal history of malignant neoplasm of testis; Z99.3 Dependence on wheelchair; F17.210 Nicotine dependence, cigarettes, uncomplicated; I25.2 Old myocardial infarction
CPT/HCPCS: 84484-PO; 87186-90; 92507-GN; 92523-GN; 96365; 97110-GP; 97162-GP; 97165-GO; 97530-GO; 97530-GP; 97535-GO; C1751; J0171; J0295; J0360; J0696; J1100; J1170; J1265; J1450; J1650; J2060; J2250; J2270; J2370; J2405; J2543; J2550; J2704; J2997; J3010; J3480; P9016; P9041; Q9967

== ENCOUNTER 2018-02-02 11:07 | Day surgery (SDC) | payer MEDICAID ==
[2018-02-02] MEDS ORDERED: LR 1,000 ML IV ONE (11:43)
--- NOTE | 2018-02-02 12:11 | PDANEPAE ---
ANE History of Present Illness bleeding ulcers ANE Past Medical History - Cardiovascular History Hx Hypertension: Yes Hx Arrhythmias: No Hx Chest Pain: No Hx Coronary Artery / Peripheral Vascular Disease: Yes Hx CHF / Valvular Disease: No Hx Palpitations: No Cardiovascular History Comment: [place], s/p stents 2010. WOULD NOT PROVIDE ANY ADDITIONAL INFORMATION - Pulmonary History Hx COPD: Yes Hx Asthma/Reactive Airway Disease: Yes Hx Recent Upper Respiratory Infection: No Hx Oxygen in Use at Home: No Hx Sleep Apnea: No Sleep Apnea Screening Result - Last Documented: Positive Pulmonary History Comment: Active smoker. PREV ELY PLEURAL EFFUSIONS. PNEUMOTHORACES. 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 NEUROGENIC BLADDER - Liver History Hx Hepatic Disorders: No - Neurological & Psychiatric Hx Hx Neurological and Psychiatric Disorders: No - Cancer History Hx Cancer: Yes Cancer History Comment: TESTICULAR - Congenital Disorder History Hx Congenital Disorders: Yes Congenital History Comment: BOERHAAVE SYNDROME - GI History Hx Gastrointestinal Disorders: Yes Gastrointestinal History Comment: Esophageal rupture surgically repaired on 06/29. HX OF BOERHAAVE SYNDROME - Other Health History Other Health History: Anemia. PERIPHERAL NEUROPATHY - Chronic Pain History Chronic Pain: No - Surgical History Prior Surgeries: RT THORACOTOMY WITH ESOPHAGEAL PERFORATION AND POST HEMATOMA 2017. DID NOT WANT TO PROVIDE ANY ADDITIONAL INFORMATION ANE Review of Systems Review of Systems: - Exercise capacity METS (RN): 1 METS ANE Patient History - Allergies Allergies/Adverse Reactions: No Known Allergies Allergy (Verified 12/06/16 09:14) - Home Medications Home Medications: Metoprolol Succinate BID 01/23/18 [Last Taken Unknown] - NPO status NPO Since - Liquids (Date): 02/01/18 NPO Since - Liquids (Time): 20:00 NPO Since - Solids (Date): 01/31/18 - Smoking Hx Smoking Status: Heavy smoker ANE Labs/Vital Signs - Vital Signs Blood Pressure: 128/93 Heart Rate: 55 Respiratory Rate: 16 O2 Sat (%): 97 Height: 167.64 cm Weight: 45.359 kg ANE Physical Exam - Airway Neck exam: FROM Mallampati Score: Class 2 Mouth exam: normal dental/mouth exam - Pulmonary Pulmonary: no respiratory distress - Cardiovascular Cardiovascular: regular rate and rhythym - ASA Status ASA Status: III ANE Anesthesia Plan Total IV Anesthesia: Yes
[2018-02-02] MEDS ORDERED: PROPOFOL 200 MG/20 ML VIAL ONE (12:13)
--- NOTE | 2018-02-02 12:15 | PDGENHP ---
History & Physical Chief Complaint: esophageal perforation/f/u Barretts History of Present Illness: 57 year old male presents for evaluation of GERD, esophageal perf, and Barretts esophagus. Pertinent Past, Social, Family History: PMHx; OA, CAD, testicular cancer, HTN. PSurgHx: esophageal perf Relevant Physical Exam: HEENT: anicteric sclera. Cv: RRR +s1s2. lungs: CTAB. Abd: soft, nt, + bs Cardiorespiratory Assessment: ASA 3
[2018-02-02] MEDS ORDERED: INDOMETHACIN 50 MG SUPP PR PRN (12:16)
[2018-02-02] MEDS ORDERED: NS 500 ML IV SCH (12:30)
[2018-02-02] MEDS ORDERED: NALOXONE HCL 0.4 MG/ML INJ IVP PRN (12:31)
--- NOTE | 2018-02-02 12:44 | POSTANESTH ---
Post Anesthetic Evaluation Cardiovascular Status: Normal, Stable Respiratory Status: Normal, Stable Level of Consciousness/Mental Status: Can Participate in Eval Pain Control: Adequate, Prn Tx Ordered Nausea/Vomiting Control: Adequate, Prn Tx Ordered Complications Possibly Related to Anesthesia: None Noted
[2018-02-02 13:39] VITALS: BP 153/107
--- NOTE | 2018-02-05 11:09 | GIREPORT ---
[facility] - Endoscopy Department Patient Name: Cortes Mason Procedure Date: 02/02/2018 12:11 PM Patient Type: Outpatient Attending MD/ ER Physician: Darinel Atkins MD Procedure: Upper GI endoscopy Indications: Espino's esophagus Patient Profile: 57 year old male presents for evaluatin of Espino's esophagus/heartbur n/ recent esophageal perforation s/p repair. Providers: Darinel Atkins MD Medicines: Monitored Anesthesia Care Complications: No immediate complications. Estimated blood loss: Minimal. Description of Procedure: After obtaining informed consent, the endoscope was passed under direct vision. Throughout the procedure, the patient's blood pressure, pulse, and oxygen saturations were monitored continuously. The Endoscope was intro duced through the mouth, and advanced to the second part of duodenum. The up er GI endoscopy was accomplished without difficulty. The patient tolerated th e procedure well. Findings: There were esophageal mucosal changes consistent with long-segment Donis ett's esophagus present in the lower third of the esophagus. The maximum longitudinal extent of these mucosal changes was 6 cm in length with on e tongue extending one centimeter above. [place] classification C6M7. Muco sa was biopsied with a cold forceps for histology in 4 quadrants at interv als of 1 cm in the lower third of the esophagus. A medium-sized hiatal hernia was present. Patchy mildly erythematous mucosa was found in the stomach. Biopsies we re taken with a cold forceps for histology. The examined duodenum was normal. Estimated Blood Loss: Estimated blood loss was minimal. Post Op Diagnosis: - Esophageal mucosal changes consistent with long-segment Espino's esophagus. Biopsied. - Medium-sized hiatal hernia. - Erythematous mucosa in the. Biopsied. - Normal examined duodenum. Recommendation: - Discharge patient to home (with escort). - Resume previous diet. - Continue present medications. - Await pathology results. - Repeat upper endoscopy for surveillance based on pathology results. - PPI therapy. - Thank you for allowing me to participate in the care of your patient. Attending Participation: I personally performed the entire procedure. Darinel Atkins MD Darinel Atkins MD 02/02/2018 12:42:27 PM This report has been signed electronicallyDarinel Atkins MD Number of Addenda: 0 Note Initiated On: 02/02/2018 12:11 PM [email or web address]
== END 2018-02-02 13:45 | disposition home or self-care (01) ==
LOC: FSGY 11:07
PROVIDERS: ATTEND Internal Medicine Gastroenterology
PROC: 0DJ08ZZ Inspection of Upper Intestinal Tract, Via Natural or Artificial Opening Endoscopic (ICD-10-PCS; principal; 2018-02-02 12:30)
PROC: 0DB68ZX Excision of Stomach, Via Natural or Artificial Opening Endoscopic, Diagnostic (ICD-10-PCS; principal; 2018-02-02 12:30)
PROC: 0DB38ZX Excision of Lower Esophagus, Via Natural or Artificial Opening Endoscopic, Diagnostic (ICD-10-PCS; principal; 2018-02-02 12:30)
DX: K22.70 Barrett's esophagus without dysplasia (principal); I25.10 Atherosclerotic heart disease of native coronary artery without angina pectoris; I25.2 Old myocardial infarction; Z95.5 Presence of coronary angioplasty implant and graft; M19.91 Primary osteoarthritis, unspecified site; K21.9 Gastro-esophageal reflux disease without esophagitis; F17.210 Nicotine dependence, cigarettes, uncomplicated; Z86.711 Personal history of pulmonary embolism; Z86.73 Personal history of transient ischemic attack (TIA), and cerebral infarction without residual deficits; Z85.47 Personal history of malignant neoplasm of testis
CPT/HCPCS: J2704